=== PATIENT | male | born 1980 | race Caucasian/White ===

== ENCOUNTER 2016-12-17 12:19 | Observation (INO) | payer OTHER, SELFPAY ==
[2016-12-17 12:20] VITALS: BP 161/96; PULSE 98; RESP 16; TEMP 37.1; O2SAT 97; BMI 35.9
--- NOTE | 2016-12-17 12:44 | RAD_ITS ---
STUDY: X-RAY - RIGHT KNEE REASON FOR EXAM: Male, 36 years old. PIMPLE ANTERIOR KNEE X 2 DAYS. TODAY RED/SWELLING AND WARM. NO INJURY TECHNIQUE: 2 view(s) of the knee. COMPARISON: None. FINDINGS: Normal visualized distal femur. Normal visualized proximal tibia and fibula. Normal proximal tibiofibular articulation. Normal medial femorotibial compartment. Normal lateral femorotibial compartment. Normal patellofemoral articulation. There is diffuse soft tissue swelling, especially anteriorly. RAD/Knee 1 or 2 Views IMPRESSION: There is diffuse soft tissue swelling, especially anteriorly. Electronically Signed: Nadya Diaz MD at 14:28 EDT , Service support ,
--- NOTE | 2016-12-17 12:46 | ED.VISSUMM ---
- ER Visit Summary Date of Service: 12/17/16 Chief Complaint: [] Right knee cellulitis for a few days History of Present Illness: The patient is a 36 M [] ports of basically a few days ago he developed what he describes as a small blister over the infrapatellar region of the right knee he popped this lesion then he developed redness over the knee that his excuse extending, he was seen by his primary care physician started on Keflex which is taken for 24 hours the redness extended beyond the demarcation line he was instructed come to the hospital for admission. He has had no fever no direct trauma. He has no history of diabetes MRSA or infections Physical Examination: [] He is in no distress he has obvious cellulitis involving the anterior right knee head neck chest abdomen unremarkable the hip is unremarkable the right knee there is basically scaly skin over the infrapatellar region. He indicates is on his knees a lot for work, he has obvious edema to the skin there is no fluctuance no crepitus the patella is in good position and there is no obvious knee effusion he has surrounding redness about 10 cm circular, no lymphangitic streaking he has decreased range of motion to flexion extension, the distal tib-fib ankle and foot exams are unremarkable Test Results: [] Emergency Department Course and Treatment: [] In all of the above the fact that he is failed outpatient therapy on antibiotics for 24 hours routine screening labs blood cultures IV antibiotics x-ray Treatment Plan: [] Disposition: [] Impression: [] ED Disposition - Plan for ED Patient: Chief Complaint: Lower Extremity Injury Referrals: Too Townsend MD [Primary Care Provider] -
[2016-12-17] MEDS: Ondansetron 4 MG/2 ML Vial IV (13:02)
[2016-12-17] MEDS: 0.9% Normal Saline 1,000 ML 1000 ML IV (13:02)
[2016-12-17 13:09] LABS: Absolute Lymphocyte Count 1.33 X10^3/ul (0.83-4.51); Absolute Neutrophil Count 9.3 X10^3/uL (2.0-7.7); Basophil# 0.02 X10^3/uL; Basophil% 0.2 % (0-1); Eosinophil# 0.14 X10^3/uL; Eosinophils% 1.2 % (0-5); Hematocrit 47.4 % (40-54); Hemoglobin 16.7 g/dl (13.0-16.5); Lymphocyte # 1.33 X10^3/ul (4.0); Lymphocyte % 11.2 % (19-41); Mean Corp Hgb Conc 35.2 g/gl (32-36); Mean Corpuscular Hgb 30.4 pg (27.0-32.0); Mean Corpuscular Volume 86.2 fL (80-94); Mean Platelet Vol. 9.7 fl (6.2-12.0); Monocyte# 1.04 X10^3/uL; Monocyte% 8.8 % (0-10); Neutrophil # 9.32 X10^3/uL (2.7-7.7); Neutrophil % 78.4 % (47-70); Platelet Count 239 K/mm3 (150-450); RBC Distribution Width CV 12.4 % (11.6-14.6); RBC Distribution Width SD 39.4 fl (35.1-43.9); White Blood Count 11.9 K/mm3 (4.4-11.0)
[2016-12-17 13:22] LABS: Anion Gap 9 (5-15); BUN 15 mg/dL (7-18); BUN/Creat Ratio 11.3 RATIO (10-20); Calcium,Total 8.7 mg/dL (8.5-10.1); Chloride 101 mmol/L (98-107); Creatinine, Serum 1.33 mg/dL (0.70-1.30); EST Glomerular Filtration Rate 65 mL/min (>60); Est Glom Filt Rate - Afr Amer 78 mL/min (>60); Estimated Creatinine Clearance 69.29 ml/min; Glucose 83 mg/dL (70-110); Potassium 3.8 mmol/L (3.5-5.1); Sodium Level 138 mmol/L (136-145)
[2016-12-17 13:34] LABS: POSITIVE COUNT NO; POSITIVE DIFFERENTIAL NO; POSITIVE MORPHOLOGY NO
[2016-12-17] MEDS: 0.9% Normal Saline 1,000 ML 150 ML IV ×2 (13:47→22:15)
--- NOTE | 2016-12-17 14:19 | NURSING ---
MED SURG CELLULITIS KNEE SEMENTI
[2016-12-17 14:34] VITALS: BP 135/77; PULSE 82; PULSE 91; RESP 17; TEMP 37.4; O2SAT 95
[2016-12-17 15:21] VITALS: BMI 35.9; BMI 36.0
[2016-12-17 15:36] VITALS: BP 140/71; PULSE 88; RESP 18; TEMP 37.7; O2SAT 97
--- NOTE | 2016-12-17 16:01 | PCM.HP.STD ---
Problem List (1) Cellulitis Status: Acute (2) Obesity (BMI 35.0-39.9 without comorbidity) Status: Chronic (3) Depression Status: Chronic History of Present Illness Date of Admission: 12/17/16 Chief Complaint: pain and redness of the right knee The patient is a 36 year old M who presented to the ER c/o pain and redness of the right knee. He denies any fevers or chills. He had a pimple on his knee and he squeezed it last Sunday or Sunday. It started to get red about 2 days ago. He was seen by his PCP yesterday and started on Keflex. The border of the erythema was marked at his PCPs office. This morning the erythema extended beyond the border and he came to the emergency room. Past medical history is significant only for depression. Vital signs at presentation to the emergency room are temperature 98.8, pulse 98, blood pressure 161/96, respiratory rate 16 and he was 97% saturated on room air. Significant lab included an elevated white blood cell count at 11.6 with 78% neutrophils. Electrolytes were within normal limits and the BUN was 15 with a creatinine of 1.33. Blood sugar was within normal limits. X-ray of the right knee shows no fracture or dislocation. There is diffuse subcutaneous edema. Past Medical History Past Medical History (Chronic Problems): Chronic Problems Depression (Chronic) Obesity (BMI 35.0-39.9 without comorbidity) (Chronic) Allergies No Known Allergies Allergy (Verified 12/17/16 12:24) Home Medications: Ambulatory Orders Medication Instructions Recorded Cephalexin [Keflex] 500 mg PO 4X/DAY 12/17/16 Citalopram [Celexa] 40 mg PO DAILY 12/17/16 Surgical History: noncontributory Psychiatric History: Depression Lives: Spouse/ Significant Other Smoking Status: Never smoker Tobacco Use: Non-smoker Alcohol: Occasional - on the weekends Drugs: None - *Family History Maternal History Items: No pertinent history Paternal History Items: No pertinent history Review of Systems Constitutional: Denies: Chills, Fever, Weight Change Eyes: Denies: Blurred vision HEENT: Denies: Head Aches, Sinus Congestion, Sinus Drainage Cardiovascular: Denies: Chest Pain, Palpitations Respiratory: Denies: Cough, Shortness of breath at rest, Sputum production Gastrointestinal: Denies: Abdominal Pain, Nausea, Vomiting Genitourinary: Denies: Dysuria Musculoskeletal: Reports: Joint Pain - right knee, Joint Tenderness Skin: Denies: Rash, Wounds Neurological: Denies: Numbness, Tingling, Focal weakness Psychiatric: Reports: Depression. Denies: Homicidal Ideations, Suicidal Ideations Endocrine: Denies: Change in Body Habitus Hematologic/ Lymphatic: Denies: Hx of blood clot VTE Information - Inpt Only VTE Present on Admission: No VTE Mechan Device Prophylaxis: None VTE Pharm Prophylaxis ordered?: Yes Patient Problems: Active and Suspected Problems Cellulitis (Acute) - Physical Exam General: Alert, Oriented x3, Cooperative, Well developed - he is very muscular, Well nourished HEENT: Atraumatic, PERRLA, EOMI, Normocephalic Oral: Dry Mucosa Neck: Supple, No JVD, Negative Carotid Bruits Lungs: Clear to auscultation, Normal air movement Cardiovascular: Regular rate, Regular Rhythm, Normal S1, Normal S2, No murmurs, No Gallop Abdomen: Bowel Sounds Present, Soft, Non Tender, Non-Distended Extremities: No clubbing, No cyanosis, - - He has redness of the right knee with increased warmth. There is no open lesions and no purulent DC. There is swelling which is mostly in the soft tissue and not in the joint. He has restricted flexion....due to swelling. The pain is better with the knee extended. Skin: No rashes, No breakdown Neurological: Cranial nerves II-XII grossly intact, Neuro grossly intact Psych/Mental Status: Normal Affect, Appropriate Vital Signs Temp Pulse Resp BP Pulse Ox 99.8 F 88 18 140/71 97 12/17/16 15:36 12/17/16 15:36 12/17/16 15:36 12/17/16 15:36 12/17/16 15:36 Oxygen Delivery Method Room Air Weight: 223 lb Body Mass Index (BMI) 35.9 Assessment/Plan Active and Suspected Problems Cellulitis (Acute) Impressions 1. cellulitis of the Right knee - joint infection is not suspected at this time. 2. obesity 3. elevated Creat - may be related to heavy musculature 4. depression Admitted to [facility] 1 GM IV q 8H Motrin 800 mg TID for pain and to decrease inflammation Oxycodone PRN for pain not controlled with Motrin Elevate the RLE Lovenox for DVT prophylaxis recheck the lab in the AM Hydrate and recheck the creat
[2016-12-17 16:04] LABS: Erythrocyte Sedimentation Rate 7 mm/hr (0-15)
[2016-12-17] MEDS: oxyCODONE 5 MG Tablet PO ×2 (16:08→20:16)
[2016-12-17 16:10] LABS: Hemoglobin A1c 5.8 % (4.2-6.3)
[2016-12-17] MEDS: Enoxaparin 40 MG/0.4 ML Syringe SC (16:11)
--- NOTE | 2016-12-17 16:14 | NURSING ---
PT REFUSED ENSURE
[2016-12-17 16:23] VITALS: O2SAT 95
[2016-12-17] MEDS: HYDROmorphone 0.5 MG/0.5 ML Syringe IV (19:10)
[2016-12-17 20:11] VITALS: BP 133/73; PULSE 88; RESP 16; TEMP 37.7; O2SAT 96
[2016-12-17] MEDS: Cefazolin 1 GM/50 ML BAG IV (20:12)
[2016-12-17 20:18] VITALS: PULSE 88; RESP 16; O2SAT 96
[2016-12-17] MEDS: Ibuprofen 400 MG Tablet 800 MG PO (21:14)
[2016-12-17] MEDS: Acetaminophen 325 MG Tablet 650 MG PO (22:18)
[2016-12-18] MEDS: oxyCODONE 5 MG Tablet PO ×4 (00:19→21:05)
[2016-12-18] MEDS: guaiFENesin 10 ML UDC (200MG/10ML) PO (00:43)
[2016-12-18 02:21] VITALS: BP 122/69; PULSE 66; RESP 16; TEMP 36.6; O2SAT 95
[2016-12-18 02:25] VITALS: PULSE 66
[2016-12-18] MEDS: Ibuprofen 400 MG Tablet 800 MG PO ×3 (05:37→21:05)
[2016-12-18] MEDS: Cefazolin 1 GM/50 ML BAG IV ×3 (05:37→21:05)
[2016-12-18] MEDS: Enoxaparin 40 MG/0.4 ML Syringe SC (05:38)
[2016-12-18] MEDS: 0.9% Normal Saline 1,000 ML 150 ML IV (05:40)
[2016-12-18 07:57] VITALS: BP 144/93; PULSE 69; RESP 18; TEMP 36.4; O2SAT 97
[2016-12-18] MEDS: Citalopram 40 MG TABLET PO (09:25)
--- NOTE | 2016-12-18 11:41 | PCM.PROGNOTE ---
Patient Problems: Active and Suspected Problems Cellulitis (Acute) Subjective: Afebrile. The pain in the right knee is less today. The erythema is fading. No purulent DC - Physical Exam General: Alert, Oriented x3, Cooperative, No apparent distress Skin: - - less erythema of the R knee today....less intense. there is less swelling in the knee but more swelling in the right thigh due to the way the RLE is elevated. No thigh pain. there is no joint effusion appreciated. There is hyperkeratosis of both knees over the patella with cracking of the skin on the right. Vital Signs Temp Pulse Resp BP Pulse Ox 97.5 F 69 18 144/93 97 12/18/16 07:57 12/18/16 07:57 12/18/16 07:57 12/18/16 07:57 12/18/16 07:57 Oxygen Delivery Method Room Air Weight: 222 lb 10.67 oz Body Mass Index (BMI) 35.9 Intake and Output for Last 24 Hours 12/16/16 12/17/16 12/18/16 23:59 23:59 23:59 Intake Total 1163 2593 Balance 1163 2593 Assessment/Plan Active and Suspected Problems Cellulitis (Acute) Impressions 1. cellulitis of the Right knee - joint infection is not suspected at this time. 2. obesity 3. elevated Creat - may be related to heavy musculature 4. depression Continue Ancef Await results of blood cultures If continued improvement will discharge on 12/19 on Keflex or Duricef. Moisturizer to the knees over the patella BL
--- NOTE | 2016-12-18 11:47 | CASEMGMT ---
See RN CM Assessment. DC Plan: Home on dc. Stormy DURBIN BSN ACM
[2016-12-18] MEDS: 0.9% NaCl Peripheral Flush Adult/Peds IV ×2 (13:55→21:06)
[2016-12-18 14:01] VITALS: BP 133/65; PULSE 80; RESP 18; TEMP 36.8; O2SAT 96
[2016-12-18] MEDS: Mag Hydrox/Al Hydrox/Simeth 30 ML UDC PO (16:46)
[2016-12-18 19:38] VITALS: BP 146/79; PULSE 76; RESP 16; TEMP 36.4; O2SAT 97
[2016-12-19 01:45] VITALS: BP 115/68; PULSE 72; RESP 16; TEMP 36.7; O2SAT 95
[2016-12-19] MEDS: Cefazolin 1 GM/50 ML BAG IV ×2 (05:08→13:47)
[2016-12-19] MEDS: Enoxaparin 40 MG/0.4 ML Syringe SC (05:08)
[2016-12-19] MEDS: Ibuprofen 400 MG Tablet 800 MG PO ×2 (05:08→13:47)
[2016-12-19 06:12] LABS: Absolute Lymphocyte Count 1.49 X10^3/ul (0.83-4.51); Absolute Neutrophil Count 5.5 X10^3/uL (2.0-7.7); Basophil# 0.02 X10^3/uL; Basophil% 0.3 % (0-1); Eosinophil# 0.16 X10^3/uL; Lymphocyte # 1.49 X10^3/ul (4.0); Lymphocyte % 18.7 % (19-41); Mean Corp Hgb Conc 34.1 g/gl (32-36); Mean Corpuscular Hgb 30.2 pg (27.0-32.0); Mean Corpuscular Volume 88.7 fL (80-94); Mean Platelet Vol. 9.9 fl (6.2-12.0); Monocyte# 0.75 X10^3/uL; Monocyte% 9.4 % (0-10); Neutrophil # 5.52 X10^3/uL (2.7-7.7); Neutrophil % 69.5 % (47-70); Platelet Count 238 K/mm3 (150-450); RBC Distribution Width CV 12.5 % (11.6-14.6); RBC Distribution Width SD 40.1 fl (35.1-43.9); Red Blood Count 4.96 M/mm3 (4.6-6.2)
[2016-12-19 06:16] LABS: POSITIVE COUNT NO; POSITIVE DIFFERENTIAL NO; POSITIVE MORPHOLOGY NO
[2016-12-19 06:44] LABS: Anion Gap 7 (5-15); BUN 10 mg/dL (7-18); BUN/Creat Ratio 9.6 RATIO (10-20); Calcium,Total 8.1 mg/dL (8.5-10.1); Chloride 103 mmol/L (98-107); Creatinine, Serum 1.04 mg/dL (0.70-1.30); EST Glomerular Filtration Rate 86 mL/min (>60); Est Glom Filt Rate - Afr Amer 104 mL/min (>60); Estimated Creatinine Clearance 88.61 ml/min; Glucose 97 mg/dL (70-110); Potassium 4.1 mmol/L (3.5-5.1); Sodium Level 141 mmol/L (136-145)
[2016-12-19] MEDS: oxyCODONE 5 MG Tablet PO ×2 (08:37→13:51)
[2016-12-19] MEDS: Citalopram 40 MG TABLET PO (08:38)
[2016-12-19 09:00] VITALS: BP 133/74; PULSE 94; RESP 16; TEMP 36.1; O2SAT 97
--- NOTE | 2016-12-19 10:37 | VDLE_ITS ---
Reason For Study: pain and swelling RIGHT GSV is normal. CFV is compressible, spontaneous, phasic, competent and demonstrates normal augmentation. FV is compressible, spontaneous, phasic, competent and demonstrates normal augmentation. POP V is compressible, spontaneous, phasic, competent and demonstrates normal augmentation. T/P Trunk is compressible. PTV is compressible. RT PerV is compressible. Procedure Exam performed portable in patient room. The exam was diagnostic. A preliminary report was called and/or faxed to Thomas DURBIN. Interpretation Summary Deep veins of the right lower extremity are patent and compressible segmentally. There is no evidence of right lower extremity deep vein thrombosis. Valvular competence appears intact within the proximal deep venous system on the right . The right greater saphenous vein appears patent and compressible segmentally. Ordering Physician: Sofia Gustafson Performed By: Efrem Vasquez RVT
--- NOTE | 2016-12-19 13:28 | PCM.DC ---
- Discharge Diagnoses Current Active Problems: Current Active and Chronic Problems Cellulitis (Acute) Depression (Chronic) Obesity (BMI 35.0-39.9 without comorbidity) (Chronic) You will use the following diet at home:: No restrictions Your food should be the consistency of: Regular Your liquids should be the consistency of: Regular/Thin Discharge Activity: May not drive while taking narcotic pain medications. Return to work on:: 12/25/16 Weight Bearing Status: Weight bearing as tolerated Keep extremity elevated above heart level: Right Leg Call your doctor if you observe: Fever of 101 or Higher, Calf discomfort, Uncontrolled pain, - - rash, diarrhea Instructions: Cellulitis - Causes,Symptoms,Treating Additional Instructions: The ultrasound of the right leg shows no blood clots. The swelling is due to the infection and it will gradually improve. Keep it elevated any time you are sitting. Pending Tests on Discharge: none Allergies/Adverse Reactions: Allergies No Known Allergies Allergy (Verified 12/17/16 12:24) Medications to take at Discharge Citalopram [Celexa] 40 mg PO DAILY 12/17/16 Cefadroxil 1 gm PO BID #16 tablet 12/19/16 Ibuprofen [Motrin] 800 mg PO Q8 PRN #30 tablet 12/19/16 Oxycodone HCl/Acetaminophen [Percocet 5/325] 1 - 2 tablet PO Q4H PRN PRN #20 tablet 12/19/16 The following prescriptions were given: Oxycodone HCl/Acetaminophen [Percocet 5/325] 1 - 2 tablet PO Q4H PRN PRN #20 tablet PRN Reason: Pain Ibuprofen [Motrin] 800 mg PO Q8 PRN #30 tablet PRN Reason: Pain Cefadroxil 1 gm PO BID #16 tablet Primary Care Physician: Too Townsend MD [Primary Care Provider] - Please follow up with your Primary Care Physician in: this Sunday Proposed Discharge Date: 12/19/16
--- NOTE | 2016-12-19 13:36 | DS.PCM_ITS ---
Discharge Date and Diagnosis Date of Admission: 12/17/16 Date of Discharge: 12/19/16 - Primary Discharge Diagnosis Active and Suspected Problems Cellulitis (Acute) - RLE/Knee - Secondary Discharge Diagnosis Chronic Problems Depression (Chronic) Obesity (BMI 35.0-39.9 without comorbidity) (Chronic) Hospital Course and Treatment Imaging Results: Clinical Impression(s) from Imaging Studies Knee X-Ray 12/17/16 12:44 IMPRESSION: There is diffuse soft tissue swelling, especially anteriorly. Electronically Signed: Nadya Diaz MD at 14:28 EDT , Service support , Laboratory Last Values WBC 8.0 K/mm3 (4.4-11.0) 12/19/16 05:25 RBC 4.96 M/mm3 (4.6-6.2) 12/19/16 05:25 Hgb 15.0 g/dl (13.0-16.5) 12/19/16 05:25 Hct 44.0 % (40-54) 12/19/16 05:25 MCV 88.7 fL (80-94) 12/19/16 05:25 MCH 30.2 pg (27.0-32.0) 12/19/16 05:25 MCHC 34.1 g/gl (32-36) 12/19/16 05:25 RDW 12.5 % (11.6-14.6) 12/19/16 05:25 RDW Differential 40.1 fl (35.1-43.9) 12/19/16 05:25 Plt Count 238 K/mm3 (150-450) 12/19/16 05:25 MPV 9.9 fl (6.2-12.0) 12/19/16 05:25 Immature Gran % (Auto) 0.100 % (0.0-0.9) 12/19/16 05:25 Neut % (Auto) 69.5 % (47-70) 12/19/16 05:25 Lymph % (Auto) 18.7 % (19-41) L 12/19/16 05:25 [place] % (Auto) 9.4 % (0-10) 12/19/16 05:25 Eos % (Auto) 2.0 % (0-5) 12/19/16 05:25 Baso % (Auto) 0.3 % (0-1) 12/19/16 05:25 Absolute Neuts (auto) 5.5 X10^3/uL (2.0-7.7) 12/19/16 05:25 Absolute Lymphs (auto) 1.49 X10^3/ul (0.83-4.51) 12/19/16 05:25 Total Counted Not Reportable 12/19/16 05:25 ESR 7 mm/hr (0-15) 12/17/16 12:54 Sodium 141 mmol/L (136-145) 12/19/16 05:25 Potassium 4.1 mmol/L (3.5-5.1) 12/19/16 05:25 Chloride 103 mmol/L (98-107) 12/19/16 05:25 Carbon Dioxide 31.0 mmol/L (21.0-32.0) 12/19/16 05:25 Anion Gap 7 (5-15) 12/19/16 05:25 BUN 10 mg/dL (7-18) 12/19/16 05:25 Creatinine 1.04 mg/dL (0.70-1.30) 12/19/16 05:25 Estim Creat Clear Calc 88.61 ml/min 12/19/16 05:25 Est GFR (MDRD) Af Amer 104 mL/min (>60) 12/19/16 05:25 Est GFR (MDRD) Non-Af 86 mL/min (>60) 12/19/16 05:25 BUN/Creatinine Ratio 9.6 RATIO (10-20) L 12/19/16 05:25 Glucose 97 mg/dL (70-110) 12/19/16 05:25 Hemoglobin A1c 5.8 % (4.2-6.3) 12/17/16 12:54 Calcium 8.1 mg/dL (8.5-10.1) L 12/19/16 05:25 none Operations: None Procedures: - - US of the RLE - negative for DVT Summary of Care Provided: The patient is a 36 year old M with a past medical history of depression and obesity who presented to the [facility] emergency room complaining of pain, swelling and redness around his right knee. He had been seen by Dr. Townsend in the office the preceding day and been placed on Keflex however, he stated the redness was spreading beyond the border marked in Dr. Townsend's office. He was afebrile in the emergency room. White blood cell count was elevated at 11.6 with 78% neutrophils. Creatinine was increased at 1.33. An x-ray of the right knee showed no fracture or dislocation. There was diffuse subcutaneous edema around the right knee in the soft tissues. On PE there was no significant joint effusion and the swelling was in the bursae and in the soft tissue. There was erythema around the knee and there was increased warmth to touch. There were no openings in the skin and no purulent discharge. There were no localized areas of fluctuance. He was admitted to the hospital and placed on intravenous Ancef. The right lower extremity was elevated. Blood cultures were negative. White blood cell count on the date of discharge was 8.0 with a normal differential. Sed rate at admission was 7. Creatinine decreased to 1.04 discharge. On the date of discharge he had edema extending from the upper thigh to the ankle. Venous ultrasound of the right lower extremity was obtained and was negative for DVT. I suspect the edema in the thigh is due to the positioning of the leg to elevate the RLE above the level of the heart. He was discharged home with a prescription for Duricef 1 g p.o. twice daily for 8 days. He is going to follow-up with Dr. Townsend later this week for a recheck. He was given a prescription for Percocet and Motrin for pain control. He was instructed to elevate his knee when he is sitting. He was given a work release to return to work on 12/25. Discharge Activity: May not drive while taking narcotic pain medications. Return to work on:: 12/25/16 Weight Bearing Status: Weight bearing as tolerated Keep extremity elevated above heart level: Right Leg Call your doctor if you observe: Fever of 101 or Higher, Calf discomfort, Uncontrolled pain, - - rash, diarrhea Home Medications: Medications to take at Discharge Citalopram [Celexa] 40 mg PO DAILY 12/17/16 Cefadroxil 1 gm PO BID #16 tablet 12/19/16 Ibuprofen [Motrin] 800 mg PO Q8 PRN #30 tablet 12/19/16 Oxycodone HCl/Acetaminophen [Percocet 5/325] 1 - 2 tablet PO Q4H PRN PRN #20 tablet 12/19/16 Following Prescrptions Were Given to Patient: Oxycodone HCl/Acetaminophen [Percocet 5/325] 1 - 2 tablet PO Q4H PRN PRN #20 tablet PRN Reason: Pain Ibuprofen [Motrin] 800 mg PO Q8 PRN #30 tablet PRN Reason: Pain Cefadroxil 1 gm PO BID #16 tablet Primary Care Physician: Too Townsend MD [Primary Care Provider] - Please follow up with your Primary Care Physician in: this Sunday Patient Instructions: Cellulitis - Causes,Symptoms,Treating Disposition: Home Minutes spent on discharge:: 35 Patient Condition:: Good Meaningful Use Info Meaningful Use Diagnoses (Choose all that apply): None applicable
[2016-12-19] MEDS: 0.9% NaCl Peripheral Flush Adult/Peds IV (13:48)
[2016-12-19 13:55] VITALS: BP 158/85; PULSE 85; RESP 18; TEMP 36.2; O2SAT 96
== END 2016-12-19 14:31 | disposition home or self-care (01) | DRG 603 ==
LOC: ED 08-02 12:18 → MS3 08-02 12:18
PROVIDERS: Admitting Provider Internal Medicine; Emergency Provider Emergency Medicine; Family Provider Family Medicine; PCP Family Medicine; Visit Provider Internal Medicine
DX: L03.115 Cellulitis of right lower limb (principal); F32.9 Major depressive disorder, single episode, unspecified; E66.9 Obesity, unspecified; Z68.35 Body mass index [BMI] 35.0-35.9, adult; Z79.899 Other long term (current) drug therapy
CPT/HCPCS: 36415; 73560; 80048; 83036; 85025; 85652; 87040; 93971; 97802; 99218; 99283; J7030; A4216; G0378; J2405

== ENCOUNTER → 2017-09-08 11:08 | Outpatient (CLI) | payer OTHER, SELFPAY ==
[2017-09-08 12:07] LABS: Anion Gap 5 (5-15); BUN 14 mg/dL (7-18); BUN/Creat Ratio 12.5 RATIO (10-20); Calcium,Total 8.3 mg/dL (8.5-10.1); Chloride 101 mmol/L (98-107); Cholesterol 221 mg/dL (200); Creatinine, Serum 1.12 mg/dL (0.70-1.30); EST Glomerular Filtration Rate 78 mL/min (>60); Est Glom Filt Rate - Afr Amer 95 mL/min (>60); Glucose 99 mg/dL (74-106); High Density Lipoprotein 34 mg/dL; Potassium 3.7 mmol/L (3.5-5.1); Sodium Level 136 mmol/L (136-145); Triglycerides 193 mg/dL; Very Low Density Lipoprotein 39 mg/dL (5-40)
== END ==
PROVIDERS: Family Provider Family Medicine; PCP Family Medicine; Visit Provider Family Medicine
DX: I10 Essential (primary) hypertension (principal)
CPT/HCPCS: 36415; 80048; 80061

== ENCOUNTER → 2017-11-29 17:05 | Outpatient (CLI) | payer OTHER, SELFPAY ==
--- NOTE | 2017-11-29 17:07 | RAD_ITS ---
STUDY: X-RAY - LEFT WRIST REASON FOR EXAM: Male, 37 years old. Nontraumatic left wrist pain TECHNIQUE: 3 view(s) of the wrist were obtained. COMPARISON: None. FINDINGS: Normal visualized distal radius and ulna. Normal radiocarpal articulation. Normal distal radioulnar articulation. Normal carpal bones. Normal carpal articulations. Normal carpometacarpal articulation of the thumb. Normal second through fifth carpometacarpal articulations. Normal visualized metacarpal bones. The soft tissue structures are unremarkable. RAD/Wrist min 3 Views IMPRESSION: Normal x-ray examination of the wrist. Electronically Signed: Rodger Yancey MD at 4:59 EDT Tel , Service support ,
== END ==
PROVIDERS: Family Provider Family Medicine; PCP Family Medicine; Referring Provider Family Medicine; Visit Provider Family Medicine
DX: M25.532 Pain in left wrist (principal)
CPT/HCPCS: 73110

== ENCOUNTER → 2018-02-16 09:18 | Outpatient (CLI) | payer OTHER, SELFPAY ==
[2016-12-22 02:10] VITALS: BMI 36.3
[2018-02-16 10:51] LABS: Anion Gap 7 (5-15); BUN 19 mg/dL (7-18); BUN/Creat Ratio 18.3 RATIO (10-20); Calcium,Total 8.4 mg/dL (8.5-10.1); Chloride 104 mmol/L (98-107); Cholesterol 248 mg/dL (200); Creatinine, Serum 1.04 mg/dL (0.70-1.30); EST Glomerular Filtration Rate 85 mL/min (>60); Est Glom Filt Rate - Afr Amer 103 mL/min (>60); Glucose 100 mg/dL (74-106); High Density Lipoprotein 35 mg/dL; Sodium Level 139 mmol/L (136-145); Triglycerides 163 mg/dL; Very Low Density Lipoprotein 33 mg/dL (5-40)
== END ==
PROVIDERS: Family Provider Family Medicine; PCP Family Medicine; Referring Provider Family Medicine; Visit Provider Family Medicine
DX: I10 Essential (primary) hypertension (principal)
CPT/HCPCS: 36415; 80048; 80061

== ENCOUNTER → 2018-06-06 | Outpatient (CLI) | payer OTHER, SELFPAY ==
[2016-12-22 02:10] VITALS: BMI 36.3
--- NOTE | 2018-06-06 16:42 | RAD_ITS ---
STUDY: X-RAY - RIGHT HAND REASON FOR EXAM: Swelling, splinter at the anterior base of thumb. TECHNIQUE: 3 view(s) of the hand. COMPARISON: None. FINDINGS: Normal radiocarpal articulation. Normal distal radioulnar joint. Normal visualized carpal bones. Normal carpal articulations Normal carpometacarpal articulation of the thumb. Normal second through fifth carpometacarpal joints. Normal metacarpi. Normal metacarpophalangeal joint of the thumb. Normal interphalangeal joint of the thumb. Normal proximal and distal phalanges of the thumb. Normal metacarpophalangeal joints of the second through fifth fingers. Normal proximal and distal interphalangeal joints of the second through fifth fingers. Normal phalanges of the second through fifth fingers. The soft tissue structures are unremarkable. RAD/Hand Min 3 Views IMPRESSION: Normal x-ray examination of the hand without demonstrated radiopaque foreign body. Electronically Signed: Marvin Nuñez MD at 14:21 EDT Tel , Service support ,
== END | disposition home or self-care (01) ==
LOC: MTRAD 16:39
PROVIDERS: Family Provider Family Medicine; PCP Family Medicine; Referring Provider Nurse Practitioner Family; Visit Provider Nurse Practitioner Family
DX: S60.551A Superficial foreign body of right hand, initial encounter (principal)
CPT/HCPCS: 73130

== ENCOUNTER 2018-06-08 11:17 | Inpatient (IN) | payer OTHER, SELFPAY ==
[2018-06-08 11:18] VITALS: BP 118/59; PULSE 90; RESP 17; TEMP 37.1; O2SAT 96; BMI 34.0
--- NOTE | 2018-06-08 12:26 | CT_ITS ---
CT right hand INDICATION:PIECE OF WOOD INTO HAND BETWEEN THUMB AND FIRST DIGIT ON SUNDAY, HAND NOW RED, SWOLLEN AND WARM TO TOUCH TECHNIQUE: Axial CT imaging was performed through the hand with sagittal and coronal reformatted images obtained. No IV contrast. FINDINGS: The distal radius and ulna are unremarkable. The proximal and distal carpal rows are normal. The metacarpals are normal without evidence of periosteal reaction or jo erosion. Normal first through fifth digit phalanges. There is a linear foreign body in the soft tissues between the first and second digits measuring approximately 1.9 cm in length and 1.3 mm wide and approximately 6 mm deep to the skin surface (image 54). There is soft tissue stranding along this foreign body with small locules of air (axial image 51). Skin thickening and small locules with adjacent increased density on axial image 56 likely represents entry site. CT/Extremity Upper without Contra IMPRESSION: 1. Linear foreign body between the first and second digits with adjacent inflammation suggesting cellulitis. No focal fluid collection. Small amount of air may be related to penetrating injury. Electronically Signed: Umer Ng MD at 14:08 EDT , Service support ,
[2018-06-08 13:04] LABS: Absolute Lymphocyte Count 1.03 X10^3/ul (0.83-4.51); Absolute Neutrophil Count 9.1 X10^3/uL (2.0-7.7); Basophil# 0.02 X10^3/uL; Basophil% 0.2 % (0-1); Eosinophil# 0.09 X10^3/uL; Eosinophils% 0.8 % (0-5); Hematocrit 45.9 % (40-54); Hemoglobin 16.6 g/dl (13.0-16.5); Lymphocyte # 1.03 X10^3/ul (4.0); Lymphocyte % 9.4 % (19-41); Mean Corp Hgb Conc 36.2 g/gl (32-36); Mean Corpuscular Hgb 30.7 pg (27.0-32.0); Mean Platelet Vol. 9.9 fl (6.2-12.0); Monocyte# 0.71 X10^3/uL; Monocyte% 6.5 % (0-10); Neutrophil # 9.06 X10^3/uL (2.7-7.7); Neutrophil % 82.8 % (47-70); Platelet Count 236 K/mm3 (150-450); RBC Distribution Width CV 12.5 % (11.6-14.6); RBC Distribution Width SD 38.7 fl (35.1-43.9); White Blood Count 10.9 K/mm3 (4.4-11.0)
[2018-06-08 13:09] LABS: POSITIVE COUNT NO; POSITIVE DIFFERENTIAL NO; POSITIVE MORPHOLOGY NO
[2018-06-08 13:17] LABS: Anion Gap 7 (5-15); BUN 16 mg/dL (7-18); BUN/Creat Ratio 12.4 RATIO (10-20); CRP 5.83 mg/L (0.0-3.0); Calcium,Total 8.6 mg/dL (8.5-10.1); Chloride 102 mmol/L (98-107); Creatinine, Serum 1.29 mg/dL (0.70-1.30); EST Glomerular Filtration Rate 66 mL/min (>60); Est Glom Filt Rate - Afr Amer 80 mL/min (>60); Glucose 118 mg/dL (74-106); Sodium Level 137 mmol/L (136-145)
--- NOTE | 2018-06-08 13:24 | ED.VISSUMM ---
- ER Visit Summary Date of Service: 06/08/18 Chief Complaint: [Foreign body right hand] History of Present Illness: The patient is a 37 M [presents the emergency department complaint of a foreign body in his right hand. Patient states that he picked up a 2 x 4 piece of wood 3 days ago and a large splinter entered the webspace between his thumb and right index finger. Patient states that he was seen by nurse practitioner at his primary care physician's office where he had an x-ray and he was started on Bactrim and was told to come back in several days to see if they can have the splinter removed. Patient had area of erythema outlined with marker and now has increased redness and swelling to the right hand. He denies any fevers. Patient was seen by physician today who attempted to remove the foreign body unsuccessfully and was referred to the emergency department. Patient is right-hand dominant. Patient is up-to-date on tetanus.] Physical Examination: [HEENT-PERRLA, EOMI. Cranial nerves II through XII grossly intact. TMs clear. Mucous membranes moist. No adenopathy. Cardiovascular-regular rate and rhythm without murmur or ectopy Lungs-clear to auscultation, chest wall stable without crepitus or subcu emphysema Abdomen-normoactive bowel sounds, soft, nontender, no rebound or rigidity, no peritoneal signs. Extremities-intact ?4, normal range of motion, normal pulses. Right hand-patient has diffuse soft tissue swelling over the dorsal and palmar aspect of the right hand on the radial side. Patient has cellulitic changes noted. Has normal range of motion in all digits with flexion extension. He is neurovascular intact.] Test Results: CBC with differential obtained showed a white count 10.9, hemoglobin 16, hematocrit 46, placed 236. Chemistries unremarkable. C-reactive protein was 5.83. Patient was started on Unasyn 3 g IV. Case was discussed with] Emergency Department Course and Treatment: [Case was discussed with orthopedic surgeon on-call Dr. Cagle who will admit patient for IV antibiotics and possible exploration and OR tomorrow. CT scan of the hand was ordered by the surgeon and results which are currently pending]. I was asked to open up the wound further and attempt to see if there is an obvious foreign body that I am easily able to remove and also packed the wound and culture of the wound. I&D-area of the hand was sterilely draped and prepped. Wound was cleansed with Shur-Clens. Wound was anesthetized with 1% lidocaine total 3 cc. Using an 11 blade a 1.5 cm incision was made to extend the puncture wound in both directions. I attempted to probe the wound with forceps and curved hemostats and I do not palpate an obvious foreign body. Wound cultures were obtained. And small amount of packing was placed within the wound and a clean dressing applied. Treatment Plan: [Admit admit Disposition: [Admit] Impression: [Right hand foreign body with cellulitis] This note was generated with [employer] dictation software. It may contain incorrect words, spelling, and punctuation that were not noted in review of the chart prior to signing ED Disposition - Plan for ED Patient: Referrals: Too Townsend MD [Primary Care Provider] -
--- NOTE | 2018-06-08 13:30 | CT_ITS ---
CT right hand INDICATION:PIECE OF WOOD INTO HAND BETWEEN THUMB AND FIRST DIGIT ON SUNDAY, HAND NOW RED, SWOLLEN AND WARM TO TOUCH TECHNIQUE: Axial CT imaging was performed through the hand with sagittal and coronal reformatted images obtained. No IV contrast. FINDINGS: The distal radius and ulna are unremarkable. The proximal and distal carpal rows are normal. The metacarpals are normal without evidence of periosteal reaction or jo erosion. Normal first through fifth digit phalanges. There is a linear foreign body in the soft tissues between the first and second digits measuring approximately 1.9 cm in length and 1.3 mm wide and approximately 6 mm deep to the skin surface (image 54). There is soft tissue stranding along this foreign body with small locules of air (axial image 51). Skin thickening and small locules with adjacent increased density on axial image 56 likely represents entry site. CT/Coronals Sag Multi Obl 3-D Rec IMPRESSION: 1. Linear foreign body between the first and second digits with adjacent inflammation suggesting cellulitis. No focal fluid collection. Small amount of air may be related to penetrating injury. Electronically Signed: Umer Ng MD at 14:08 EDT , Service support ,
[2018-06-08 14:06] LABS: Erythrocyte Sedimentation Rate 4 mm/hr (0-15)
[2018-06-08 14:14] VITALS: BMI 33.9
[2018-06-08 14:34] VITALS: BMI 33.8
--- NOTE | 2018-06-08 16:45 | NURSING ---
06/06/18 went to [facility] - saw INDUSTRIAL REGISTERED NURSE Betito Kamara
[2018-06-08] MEDS: Acetaminophen 325 MG Tablet 650 MG PO (20:20)
[2018-06-08 20:21] VITALS: BP 130/65; PULSE 66; RESP 18; TEMP 37.2; O2SAT 96
[2018-06-09] VITALS (10 sets, daily range): BP systolic 114–160; BP diastolic 7–77; PULSE 60–90; RESP 16–18; TEMP 36.4–37.1; O2SAT 88–97; BMI 33.8
[2018-06-09] MEDS: 0.9% Normal Saline 1,000 ML 80 ML IV ×3 (02:05→12:32)
--- NOTE | 2018-06-09 05:00 | EKG12_ITS ---
Test Reason : AM EKG Blood Pressure : / mmHG Vent. Rate : 059 BPM Atrial Rate : 059 BPM P-R Int : 140 ms QRS Dur : 098 ms QT Int : 432 ms P-R-T Axes : 032 049 051 degrees QTc Int : 427 ms Sinus bradycardia Otherwise normal ECG No previous ECGs available Confirmed by ALETHEA MASTERSON, JULEE ([id number]), assignment editor QUIN CORONADO ([id number]) on 06/12/2018 2:00:08 PM Referred By: NURIS Confirmed By:JULEE CLAIRE MD
--- NOTE | 2018-06-09 11:00 | HP.PCM_ITS ---
Problem List (1) Cellulitis Status: Acute Qualifiers: Site of cellulitis: other site Qualified Code(s): L03.818 - Cellulitis of other sites (2) Foreign body hand-infection Status: Acute Qualifiers: Encounter type: initial encounter Laterality: right Qualified Code(s): S60.551A - Superficial foreign body of right hand, initial encounter; L08.9 - Local infection of the skin and subcutaneous tissue, unspecified History of Present Illness Date of Admission: 06/09/18 The patient is a 37 year old M 2 x 4 at home, moving board and splinter entered in hand 4 days ago. seen by pcp and started on antibiotics, attempted to remove splinter, but unable, bactrim; worsening and seen in ER with spreading of cellulitis,ortho called. Patient admitted with broad spectrum IV antibiotics, no fever, chills, or other constitutional symptoms. tetanus d/w patient. [] Past Medical History Past Medical History (Chronic Problems): Chronic Problems Depression (Chronic) Obesity (BMI 35.0-39.9 without comorbidity) (Chronic) Allergies No Known Allergies Allergy (Verified 06/08/18 11:18) Home Medications: Ambulatory Orders Medication Instructions Recorded Citalopram [Celexa] 40 mg PO DAILY 12/17/16 Ibuprofen [Motrin] 800 mg PO Q8 PRN #30 tablet 12/19/16 Hydrochlorothiazide [Hctz] 25 mg PO DAILY 06/08/18 Lisinopril 5 mg PO DAILY 06/08/18 Rosuvastatin Calcium [Crestor] 5 mg PO DAILY 06/08/18 Sulfamethoxazole/Trimethoprim 1 each PO BID 06/08/18 [Bactrim 400-80 mg Tablet] Oxycodone HCl/Acetaminophen 1 - 2 tablet PO Q6H PRN PRN 3 Days 06/09/18 [Percocet 5/325] #20 tablet Surgical History: noncontributory Psychiatric History: Depression Smoking Status: Never smoker - *Family History Maternal History Items: No pertinent history Paternal History Items: No pertinent history Review of Systems Constitutional: Denies: Chills, Fever, Weight Change HEENT: Denies: Head Aches, Sinus Congestion, Sinus Drainage Cardiovascular: Denies: Chest Pain, Palpitations Respiratory: Denies: Cough, Shortness of breath at rest, Sputum production Gastrointestinal: Denies: Abdominal Pain, Nausea, Vomiting Genitourinary: Denies: Dysuria Musculoskeletal: Reports: Hand Pain. Denies: Joint Pain, Joint Tenderness Skin: Denies: Rash, Wounds Neurological: Denies: Numbness, Tingling, Focal weakness Psychiatric: Denies: Anxiety, Depression, Homicidal Ideations, Suicidal Ideations Hematologic/ Lymphatic: Denies: Easy Bruising, Easy Bleeding VTE Information - Inpt Only VTE Present on Admission: No VTE Mechan Device Prophylaxis: SCD's Patient Problems: Active and Suspected Problems Foreign body hand-infection (Acute) - Physical Exam General: Alert, Oriented x3, Cooperative HEENT: Atraumatic, PERRLA, EOMI, Normocephalic Neck: Supple, No JVD, Negative Carotid Bruits Lungs: Clear to auscultation, Normal air movement Cardiovascular: Regular rate, No murmurs Abdomen: Bowel Sounds Present, Soft, Non Tender Extremities: No edema, Capillary Refill Less than 3 Seconds Skin: No rashes, No breakdown Musculoskeletal: Tenderness - First interspace, neurologically intact, able to abduct and adduct thumb without issue, swelling of thenar eminence and redness has significantly decreased Neurological: Cranial nerves II-XII grossly intact Psych/Mental Status: Normal Affect, Appropriate Vital Signs Temp Pulse Resp BP Pulse Ox 98.4 F 60 18 120/69 96 06/09/18 06:00 06/09/18 06:00 06/09/18 06:00 06/09/18 06:00 06/09/18 06:00 Oxygen Delivery Method Room Air Weight: 216 lb 4.375 oz Body Mass Index (BMI) 33.8 Intake and Output for Last 24 Hours 06/07/18 06/08/18 06/09/18 23:59 23:59 23:59 Intake Total 362 / 362 604 / 604 Balance 362 / 362 604 / 604 Microbiology Past 72 Hours 06/08/18 13:19 Gram Stain - Final Wound - Other Laboratory Tests Past 24 Hrs 06/08/18 06/08/18 12:55 12:55 WBC 10.9 RBC 5.40 Hgb 16.6 H Hct 45.9 MCV 85.0 MCH 30.7 MCHC 36.2 H RDW 12.5 RDW Differential 38.7 Plt Count 236 MPV 9.9 Immature Gran % (Auto) 0.300 Neut % (Auto) 82.8 H Lymph % (Auto) 9.4 L [place] % (Auto) 6.5 Eos % (Auto) 0.8 Baso % (Auto) 0.2 Absolute Neuts (auto) 9.1 H Absolute Lymphs (auto) 1.03 Total Counted Not Reportable ESR 4 Sodium 137 Potassium 4.0 Chloride 102 Carbon Dioxide 28.0 Anion Gap 7 BUN 16 Creatinine 1.29 Estim Creat Clear Calc 73.30 Est GFR (MDRD) Af Amer 80 Est GFR (MDRD) Non-Af 66 BUN/Creatinine Ratio 12.4 Glucose 118 H Calcium 8.6 C-React Prot Ext Range 5.83 H Assessment/Plan All Active Problems Foreign body hand-infection (Acute) Cellulitis (Acute) Patient has a foreign body visualized on CT to be just subcutaneous on physical exam he did have a slight cellulitis had been marked previously after IV antibiotics overnight has improved drastically however still has the splinter. ER did open and placed some packing to allow for some drainage as well. Risks benefits and alternatives surgery discussed with patient and . Risks i ncluding but not limited to blood loss, blood clot, infection, neurovascular, failure procedure the biggest risk for this is stiffness at the first interspace increased or continued pain and or swelling. We did consent was reviewed for I&D right interspace with removal of foreign body. iv Meropenem N.p.o. after midnight Call with increased pain numbness tingling or further issues arise ER discussed to take cultures and pending final cultures will determine when he goes home on Consult social work Consult wound care Call with concerns [phone]
--- NOTE | 2018-06-09 11:23 | DCINST_ITS ---
Discharge Diet: No Restrictions - follow up on for wound evaluation, keep incision clean and dry, call with increased redness, fever, chills or constitutional symptoms Discharge Activity: May Not Drive May shower in (days): 1 Ice area for (Minutes): 20 - Every hour while awake. Weight Bearing Status: Weight bearing as tolerated Keep extremity elevated above heart level: Operative Extremity Call your doctor if your incision/area has: Continuous Slow Oozing, Sudden Increased Bleeding, Increased Pain/ Swelling, Increased Redness, Foul Smelling Discharge Call your doctor if you observe: Fever of 101 or Higher, Coldness, Increased Pain, Numbness or Tingling, Change in Color, Calf discomfort Allergies/Adverse Reactions: Allergies No Known Allergies Allergy (Verified 06/08/18 11:18) Medications to take at Discharge Citalopram [Celexa] 40 mg PO DAILY 12/17/16 Ibuprofen [Motrin] 800 mg PO Q8 PRN #30 tablet 12/19/16 Hydrochlorothiazide [Hctz] 25 mg PO DAILY 06/08/18 Lisinopril 5 mg PO DAILY 06/08/18 Rosuvastatin Calcium [Crestor] 5 mg PO DAILY 06/08/18 Sulfamethoxazole/Trimethoprim [Bactrim 400-80 mg Tablet] 1 each PO BID 06/08/18 Primary Care Physician: Too Townsend MD [Primary Care Provider] - Test Results: Test results from this visit will be discussed in further detail at your follow- up appointment, if applicable. Please Follow Up With: Marina Cagle, - [phone]
--- NOTE | 2018-06-09 11:27 | PCM.OPRPT ---
Problem List (1) Cellulitis Status: Acute Qualifiers: Site of cellulitis: other site Qualified Code(s): L03.818 - Cellulitis of other sites (2) Foreign body hand-infection Status: Acute Qualifiers: Encounter type: initial encounter Laterality: right Qualified Code(s): S60.551A - Superficial foreign body of right hand, initial encounter; L08.9 - Local infection of the skin and subcutaneous tissue, unspecified Report of Operation Date of Procedure: 06/09/18 Pre-Operative Diagnosis: Right hand cellulitis foreign body first web interspace right hand Post-Operative Diagnosis: Same Surgery/Procedure Performed:: Right hand foreign body removal/splint, incision and drainage irrigation debridement first interspace Type of Anesthesia:: General Anesthesiologist: Dolores Escoto Specimen's removed: splinter/ not sent Estimated Blood Loss (mL): none Fluids Replaced: 800ml lr Description of Procedure: Preop note Patient is a 37-year-old male who has a retained foreign body in his first interspace see HPI for further details. Discussion with family to remove splinter discussed risk benefits of surgery risks including but not limited to blood loss, blood clot, infection, neurovascular injury, failure procedure, loss of life and loss of limb. Patient and family are aware would like proceed with right hand and right first interspace removal of foreign body irrigation debridement incision and drainage. Next Operative note Patient seen and examined preoperative holding area. Right hand was marked. Patient brought to the operating room placed supine on the operating table. Sign, anesthesia, antibiotics were held as patient received antibiotics in the form was not did for antibiotics. He did have cultures available and to be sent as well after incision. Timeout was performed. The right hand was then elevated tourniquet was raised her pressure to 50 torr. We then extended our incision is a little bit thenar as there is a smart is a puncture wound about half a centimeter in the first interspace from distal and central volar dorsal. We then used a marking pen to raissa out her extension of her incision extended about another centimeter dissected down tenotomy syllable of the splinter we are able to visualize the splinter we then remove the center in its entirety dissected down further into the muscle belly did not start that we had removed it in its entirety which we did have. We then irrigated the incision with copious amounts of sterile saline. Gently debrided off the soft tissue to ensure that there is no foreign bodies or any soft tissue debris. We then closed the skin with 4-0 nylon and placed packing in the incision dressings were applied. Tourniquet was deflated for total working time of 12 minutes. Patient tolerated procedure well there are no comp occasions transferred recovery room in stable condition. Next Postoperative Continue meropenem until final cultures next Awaiting antibiotics for home discharge however patient really like to go home on Sunday and we may send him on a broad-spectrum antibiotic coverage until final cultures and then change him once he is home family is aware and agreement of plan Consult wound care for dressing change tomorrow I will follow him at the end of the week May use hand as tolerated Call with concerns [phone] d/w and state patient in past has had mrsa skin lesion of knee resolved
--- NOTE | 2018-06-09 22:44 | NURSING ---
Pts O2 sat decreased to 88% on continuous pulse ox. Checked pt and he was just starting to fall asleep. Applied 2L oxygen via nc at this time.
--- NOTE | 2018-06-10 | FORE_PTH ---
PATIENT: ZACK CUTLER LOC: [facility] U#:[id number] AGE/SX: 37/M ROOM: [facility]323 RE06/08/[address]: Dr. Marina Cagle DO : 1980 BED: 1 DIS: 06/10/2018 SPEC #: [id number] RECD: 06/10/18 13:26 STATUS: NOHEMY NEY #: [id number] DISHA: 06/10/18 00:[address]: Marina Cagle DEPT: SURGICAL PATHOLOGY RECD BY: Rodger Malagon ENTERED: 06/10/18 13:26 SP TYPE: FOREIGN B DILAN DR: Dr. Too Townsend MD Tissues: FOREIGN BODY Procedures: Surgery Specimen Level I HEADER OPERATION: Removal of foreign body right hand PRE-OP DIAGNOSIS: Foreign body right hand TISSUE SUBMITTED: Splint right hand GROSS DIAGNOSIS Splint right hand: A piece of wood, consistent with splint (foreign body). GROSS DESCRIPTION Received in fixative is one container labeled with the patient's name and designated splint right hand. The specimen consists of a piece of brownish-black wood, splint, measuring 1.5 cm in length and 0.1 to 0.2 cm in diameter. The specimen is for gross identification only. / SJ:rg 06/10/18 CPT: 26336
[2018-06-10 02:37] VITALS: BP 115/55; PULSE 64; RESP 16; TEMP 36.3; O2SAT 98
[2018-06-10] MEDS: 0.9% Normal Saline 1,000 ML 80 ML IV (02:37)
[2018-06-10 07:37] VITALS: BP 122/67; PULSE 60; RESP 15; TEMP 36.5; O2SAT 97
[2018-06-10] MEDS: HYDROcodone Bitartrate/Apap 5/325 Tablet PO (09:08)
--- NOTE | 2018-06-10 09:11 | NURSING ---
wound photo: right hand
--- NOTE | 2018-06-10 11:45 | CASEMGMT ---
RN RACHEL Face to Face with patient for initial transition planning/care coordination assessment. RN CM introduced self and role at [facility]. Patient lying in bed, alert and oriented, at bedside. Patient willing to participate in assessment and is able to answer all questions appropriately. Care providers, pharmacy, and demographics verified. Patient wishes to discharge home, denies need for home health at this time. Patient states he has no further needs or concerns at this time. CM to follow for discharge planning needs that may arise. 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 Patient is independent at home. Transportation: self/ DME/HHC: Patient has Cpap at home. Disposition Plan: Patient to discharge home with family support and follow-up plans in place. Fatou TOTH, RN, CM
--- NOTE | 2018-06-10 12:25 | PCM.DC.ORTHO ---
Discharge Diet: No Restrictions Discharge Activity: May not drive while taking narcotic pain medications., May Take a Tub Bath - Keep wound clean and dry. No soaking May resume sexual activity in: No Restrictions Ice area for (Minutes): 20 - once an hour as needed for swelling / inflammation Weight Bearing Status: Weight bearing as tolerated Lifting Restrictions: No lfting over 5 pounds Keep extremity elevated above heart level: Operative Extremity, Right Arm Call your doctor if your incision/area has: Continuous Slow Oozing, Sudden Increased Bleeding, Increased Pain/ Swelling, Increased Redness, Foul Smelling Discharge Call your doctor if you observe: Fever of 101 or Higher, Coldness, Increased Pain, Numbness or Tingling, Change in Color, Shortness of breath, Calf discomfort Suture Line Care: Avoid Pulling/Pushing, Avoid Pinching/Bending Change Dressing in (Days):: 2 - days Cleanse incision/area with: Do not get Incision Wet, Keep Dressing Clean & Dry Additional Instructions: Patient is to continue oral bactrim until final culture report with sensitivity is back. We will notify him of results and any change to medication based on culture sensitivities. Allergies/Adverse Reactions: Allergies No Known Allergies Allergy (Verified 06/08/18 11:18) Medications to take at Discharge Citalopram [Celexa] 40 mg PO DAILY 12/17/16 Ibuprofen [Motrin] 800 mg PO Q8 PRN #30 tablet 12/19/16 Hydrochlorothiazide [Hctz] 25 mg PO DAILY 06/08/18 Lisinopril 5 mg PO DAILY 06/08/18 Rosuvastatin Calcium [Crestor] 5 mg PO DAILY 06/08/18 Sulfamethoxazole/Trimethoprim [Bactrim 400-80 mg Tablet] 1 each PO BID 06/08/18 Oxycodone HCl/Acetaminophen [Percocet 5/325] 1 - 2 tablet PO Q6H PRN PRN 3 Days #20 tablet 06/09/18 The following prescriptions were given: Oxycodone HCl/Acetaminophen [Percocet 5/325] 1 - 2 tablet PO Q6H PRN PRN 3 Days #20 tablet PRN Reason: Pain Primary Care Physician: Too Townsend MD [Primary Care Provider] - Test Results: Test results from this visit will be discussed in further detail at your follow-up appointment, if applicable. Please Follow Up With: Marina Cagle DO - [phone] When: or Sunday Proposed Discharge Date: 06/10/18
--- NOTE | 2018-06-10 12:29 | DCINST_ITS ---
Discharge Diet: No Restrictions Discharge Activity: May not drive while taking narcotic pain medications., May Take a Tub Bath - Keep wound clean and dry. No soaking May resume sexual activity in: No Restrictions Ice area for (Minutes): 20 - once an hour as needed for swelling / inflammation Weight Bearing Status: Weight bearing as tolerated Lifting Restrictions: No lfting over 5 pounds Keep extremity elevated above heart level: Operative Extremity, Right Arm Call your doctor if your incision/area has: Continuous Slow Oozing, Sudden Increased Bleeding, Increased Pain/ Swelling, Increased Redness, Foul Smelling Discharge Call your doctor if you observe: Fever of 101 or Higher, Coldness, Increased Pain, Numbness or Tingling, Change in Color, Shortness of breath, Calf discomfort Suture Line Care: Avoid Pulling/Pushing, Avoid Pinching/Bending Change Dressing in (Days):: 2 - days Cleanse incision/area with: Do not get Incision Wet, Keep Dressing Clean & Dry Additional Instructions: Patient is to continue oral bactrim until final culture report with sensitivity is back. We will notify him of results and any change to medication based on culture sensitivities. Allergies/Adverse Reactions: Allergies No Known Allergies Allergy (Verified 06/08/18 11:18) Medications to take at Discharge Citalopram [Celexa] 40 mg PO DAILY 12/17/16 Ibuprofen [Motrin] 800 mg PO Q8 PRN #30 tablet 12/19/16 Hydrochlorothiazide [Hctz] 25 mg PO DAILY 06/08/18 Lisinopril 5 mg PO DAILY 06/08/18 Rosuvastatin Calcium [Crestor] 5 mg PO DAILY 06/08/18 Sulfamethoxazole/Trimethoprim [Bactrim 400-80 mg Tablet] 1 each PO BID 06/08/18 Oxycodone HCl/Acetaminophen [Percocet 5/325] 1 - 2 tablet PO Q6H PRN PRN 3 Days #20 tablet 06/09/18 The following prescriptions were given: Oxycodone HCl/Acetaminophen [Percocet 5/325] 1 - 2 tablet PO Q6H PRN PRN 3 Days #20 tablet PRN Reason: Pain Primary Care Physician: Too Townsend MD [Primary Care Provider] - Test Results: Test results from this visit will be discussed in further detail at your follow- up appointment, if applicable. Please Follow Up With: Marina Cagle DO - [phone] When: or Sunday Proposed Discharge Date: 06/10/18
[2018-06-10 13:00] VITALS: BP 137/60; PULSE 60; RESP 16; TEMP 36.6; O2SAT 97
== END 2018-06-10 14:04 | disposition home or self-care (01) | DRG 906 ==
LOC: ED 12:33 → MS3 14:06
PROVIDERS: Admitting Provider Orthopaedic Surgery; Emergency Provider Emergency Medicine; Family Provider Family Medicine; PCP Family Medicine; Visit Provider Orthopaedic Surgery
PROC: 0JCJ0ZZ Extirpation of Matter from Right Hand Subcutaneous Tissue and Fascia, Open Approach (ICD-10-PCS; principal; 2018-06-09 08:30)
DX: S61.441A Puncture wound with foreign body of right hand, initial encounter (principal); L03.113 Cellulitis of right upper limb; X58.XXXA Exposure to other specified factors, initial encounter; F32.9 Major depressive disorder, single episode, unspecified; E66.9 Obesity, unspecified; Z68.33 Body mass index [BMI] 33.0-33.9, adult
CPT/HCPCS: 73200; 76377; 80048; 85025; 85652; 86140; 87070; 87075; 87077; 87102; 87205; 87206; 88300; 93005; 99282; J2185; J7030; A4216; J0295; J2405

== ENCOUNTER 2018-06-14 09:43 | Outpatient (RCR) | payer OTHER, SELFPAY ==
[2018-06-14 09:18] VITALS: BMI 34.1
--- NOTE | 2018-06-14 14:18 | HP.OTEVAL_ITS ---
Patient's Visit Information SAJI CUTLER is a 37 year old M, referred to Occupational Therapy by Marina Cagle DO, with a diagnosis of I and D R first finger. Date of Evaluation: 06/14/18 Occupational Therapist: Camilla Braga - Subjective Subjective: Arrived with after follow-up with Dr. Gallagher. He noted that last Sunday was picking up wood when 2-inch piece went through his hand. He noted went to ER but ER did not do anything as needed ortho consult. Had ortho consult 2 days following injury in which he noted he developed infection. He arrived after follow-up from Dr. Cagle?s office or need for protective splinting. OT talked with Dr. Cagle office who noted he needed CMC thumb spica brace to promote 'no movement of thumb.' - ADLs Comments: He is R hand dominant so increased difficulty with all ADL/IADLs tasks as well as work related tasks. - Objective Objective/Observation: 3x stitches intact, skin closed and healing. Edema around thenar eminence. - ROM MP: R 0-66, L 0-61 IP: R -30-0-56, L -30-0-65 Radial Abduction: R 0-45, L 0-56 MP: WFL PIP: WFL DIP: WFL - Strength [employer]: R 119, L 125 Lateral Pinch: R 25, L 26 Tripod Pinch: Lost when computer crashed Tip-to-Tip Pinch: Lost when computer crashed - Edema Other: edema over thenar eminence - Quick DASH-Disab of Arm,Shoulder& Hand Quick DASH Score: 16.6650 - Goals Goal:: Saji to be (I0 to complete edema management techniques if needed to R thumb to manage swelling 4/5 trials 80% of the time by d/c. Goal:: Saji to be mod I to complete splint management protocol to faciliate healing and decrease risk fo further injury 4/ 5trials 80% of the time by d/c. - Rehabilitation General Assessment: Arrived and [facility] walk over from Dr. Cagle's office. Ot talked with Nanette from Dr. Cagle's office and she noted he needed CMC brace with IP free. Completed fabrication of CMC thumb spica splint with wrist free for protection when retruning to work. He is to follow up 1x next week for splint adjustment if needed. Educated on splint and handout provided. Rehabilitation Potential: Good - Anticipated Interventions Anticipated Interventions: A/AAROM/PROM, Scar Care, Modalities, Orthoses, Caregiver Training, Home Program - Visit Plan Frequency: 1x/Week Duration: splint check follow up General Plan: OT will follow up next week to ensure splint fitting properly. Additional follow up to be schedule after splint check if needed as he continues to heal. WIll address ROM, strength, and returning to fx use of R thumb as appropriate with healing of soft tissue. TEXT: Thank you for the opportunity to evaluate your patient. For Medicare and Medicare HMO plans, please review the plan of care and approve it. It will need to be FAXED BACK to us at [phone] for Medicare purposes. Please let me know if there are questions or concerns regarding this plan of care. Physician Signature: Date:
--- NOTE | 2018-08-07 19:31 | HP.OT.NRP ---
HP - Discharge Summary - Patient Information ZACK CUTLER was seen in my office for initial evaluation on 06/14/18. The following Plan of Care was established for this patient: Initial Frequency: 1x/Week Initial Duration: splint check follow up - Anticipated Interventions Anticipated Interventions: A/AAROM/PROM, Scar Care, Modalities, Orthoses, Caregiver Training, Home Program This patient was last seen in our office 06/14/18. Pertinent comments regarding their Occupational therapy will appear below: Seen for fabricated of protective splint. Chart was kept open if there was need for alterations of splint. Did not need adjustments and will be d/c'd at this time. At this point I will be discontinuing this patient from occupational therapy. I would be happy to see this patient again in the future if found appropriate by the physician. Thank you! Camilla Braga, OTR/L
== END 2018-06-14 19:00 | disposition home or self-care (01) ==
LOC: OT 09:43
PROVIDERS: Family Provider Family Medicine; PCP Family Medicine; Referring Provider Orthopaedic Surgery; Visit Provider Orthopaedic Surgery
DX: Z98.890 Other specified postprocedural states (principal)
CPT/HCPCS: 97166; 97168

== ENCOUNTER → 2018-08-06 | Outpatient (CLI) | payer OTHER, SELFPAY ==
[2018-08-06 12:27] VITALS: BMI 34.1
--- NOTE | 2018-08-06 12:33 | RAD_ITS ---
STUDY: X-RAY - RIGHT ANKLE REASON FOR EXAM: Male, 38 years old. Right ankle pain after injury. TECHNIQUE: 3 view(s) of the ankle. COMPARISON: None. FINDINGS: Normal visualized distal tibia and fibula. Normal medial and lateral malleoli. Normal tibiotalar articulation and ankle mortise. Normal visualized talus and calcaneus. The visualized subtalar, talonavicular, calcaneocuboid and tarsal articulations are normal. The soft tissue structures are unremarkable. RAD/Ankle min 3 Views IMPRESSION: Normal x-ray examination of the ankle. Electronically Signed: Agustin Graham MD at 12:49 EDT , Service support ,
== END | disposition home or self-care (01) ==
LOC: HPRAD 12:33
PROVIDERS: Family Provider Family Medicine; PCP Family Medicine; Referring Provider Orthopaedic Surgery; Visit Provider Orthopaedic Surgery
DX: M25.571 Pain in right ankle and joints of right foot (principal)
CPT/HCPCS: 73610

== ENCOUNTER 2018-09-04 17:58 | Outpatient (RCR) | payer OTHER, SELFPAY ==
[2018-08-06 12:27] VITALS: BMI 34.1
--- NOTE | 2018-09-16 08:16 | HP.PTEVAL ---
Patient's Visit Information ZACK CUTLER is a 38 year old M referred to Physical Therapy by Marina Cagle DO with a diagnosis of R ankle sprain. Date of Evaluation: 09/04/18 Physical Therapist: Lane Mcmahan DPT - Visit Plan Frequency: 1x/Week Duration: 1 Week Plan: I gave him some ankle stability exercises adn strengthening exercises to work on at home. Pt. as bands and a BOSU ball to change strength and proprioception.I talked to him about strengtheing as much as he can to increase stability to reduce stress at ankle joint with all functional and recreational activities. Pt. to continue with exerciss on own. - Subjective Findings: Pt. is here today for his initial evalatuon with R ankle sprain. Pt. reports hurting his ankle ~1 year ago when he was kneeling for a long time and when he got up his legs were asleep. This resulted in him loosing his balance and attempting to catch hims self, resulting in turning his ankle. Pt. reports he has no issues with most of his daily activities, but has increased pain by then end of the day. He denies N/T. Pt. has tried some icing, but is no longer doing so. He is also is concerned about his edema. Pt. is hopeful to decrease his symptoms in order to allow him to complete all recreational and work activities without limtations. - Pain R ankle Pain Intensity (Out of 10): 0 Pain Intensity Range: 0, 3 - Objective POSTURE: Pt. has normal posture in stance, slight increased lateral wt. shift. PALPATION: Pt. has slight tenderness at ATFL, no pain at CFL. No achilles pain. NEURO: normal throughout. ROM: Pt. has slight loss in DF, and EVR 10deg respectively. MMT: Pt. has 4+/5 throughout, slight increase in EVR attempts. Rest of leg is 5/5 throughout. GAIT: Pt. ambulats with normal paittern, he does have slight difficulty with with descending steps. pt. has slight genus varum as well. Balance- Pt. has increased difficulty in SLS, no pain alot of frquent wt. shifting to correct instability. - Goals Goal 1:: Pt. to be I with HEP. Goal Time Frame: 1 day - Rehabilitation Potential Physical Therapy Diagnosis: Pt. does has slight instability at his ankle, mild increase insymptoms iwth anterior drawer. Pt. has sligth decrease in stregnth and ROM as well has imbalance in most SLS positions. Pt. would benefit from PT to increase ROM, strength and proprioception of ankle. Rehabilitation Potential: Excellent - Anticipated Interventions Patient/Client Instruction: Educate patient on: Condition, Plan of Care, Risk Factors, Benefits of Fitness Program For the Purpose of:: To facilitate caregiver knowledge, To improve self management, To prevent re-injury, To improve ability to perform tasks related to life management, To improve tolerance to ADL's Therapeutic Exercise to Include: Strength training, Power training, Body mechanics, Postural training, Flexibilty training, Passive ROM, Active ROM For the Purpose of:: To decrease pain, To decrease swelling/inflammation, To increase ROM, To improve muscle performance and motor function, To decrease soft tissue restriction, To increase flexibility/ROM Thank you for the opportunity to evaluate your patient. For Medicare and Medicare HMO plans, please review the plan of care and approve it. It will need to be FAXED BACK to us at [phone] for Medicare purposes. For Medicare only, by signing this I certify the plan of care. Please let me know if there are questions or concerns regarding this plan of care. Physician Signature: Date:
== END 2018-09-04 19:00 | disposition home or self-care (01) ==
LOC: PT 17:58
PROVIDERS: Family Provider Family Medicine; PCP Family Medicine; Referring Provider Orthopaedic Surgery; Visit Provider Orthopaedic Surgery
DX: S93.401D Sprain of unspecified ligament of right ankle, subsequent encounter (principal)
CPT/HCPCS: 97110; 97161

== ENCOUNTER → 2018-10-19 | Outpatient (CLI) | payer OTHER, SELFPAY ==
[2018-08-06 12:27] VITALS: BMI 34.1
[2018-10-19 10:47] LABS: Anion Gap 6 (5-15); BUN 18 mg/dL (7-18); BUN/Creat Ratio 15.7 RATIO (10-20); Calcium,Total 8.6 mg/dL (8.5-10.1); Chloride 104 mmol/L (98-107); Cholesterol 166 mg/dL (200); Creatinine, Serum 1.15 mg/dL (0.70-1.30); EST Glomerular Filtration Rate 76 mL/min (>60); Est Glom Filt Rate - Afr Amer 91 mL/min (>60); Glucose 100 mg/dL (74-106); High Density Lipoprotein 40 mg/dL; Potassium 3.9 mmol/L (3.5-5.1); Sodium Level 139 mmol/L (136-145); Triglycerides 167 mg/dL; Very Low Density Lipoprotein 33 mg/dL (5-40)
== END | disposition home or self-care (01) ==
LOC: LAB 09:02
PROVIDERS: Family Provider Family Medicine; PCP Family Medicine; Referring Provider Family Medicine; Visit Provider Family Medicine
DX: I10 Essential (primary) hypertension (principal)
CPT/HCPCS: 36415; 80048; 80061

== ENCOUNTER 2018-11-07 15:57 | Emergency (ER) | payer OTHER, SELFPAY ==
[2018-08-06 12:27] VITALS: BMI 34.1
[2018-11-07 15:57] VITALS: BP 134/82; PULSE 78; RESP 16; TEMP 36.4; O2SAT 98; BMI 34.4
[2018-11-07 16:23] LABS: Basophil# 0.05 X10^3/uL; Basophil% 0.8 % (0-1); Eosinophil# 0.12 X10^3/uL; Eosinophils% 1.8 % (0-5); Hematocrit 45.4 % (40-54); Hemoglobin 15.5 g/dL (13.0-16.5); Lymphocyte % 30.2 % (19-41); Mean Corp Hgb Conc 34.1 g/dL (32-36); Mean Corpuscular Hgb 29.8 pg (27.0-32.0); Mean Corpuscular Volume 87.3 fL (80-94); Mean Platelet Vol. 9.6 fl (6.2-12.0); Monocyte# 0.43 X10^3/uL; Monocyte% 6.5 % (0-10); NRBC Flagged by Analyzer 0 % (0-5); Neutrophil # 4.03 X10^3/uL (2.7-7.7); Neutrophil % 60.7 % (47-70); Platelet Count 246 K/mm3 (150-450); RBC Distribution Width CV 11.7 % (11.6-14.6); RBC Distribution Width SD 37.3 fl (35.1-43.9); White Blood Count 6.6 K/mm3 (4.4-11.0)
[2018-11-07 16:38] LABS: Anion Gap 3 (5-15); BUN 20 mg/dL (7-18); BUN/Creat Ratio 16.9 RATIO (10-20); Calcium,Total 8.7 mg/dL (8.5-10.1); Chloride 108 mmol/L (98-107); Creatinine, Serum 1.18 mg/dL (0.70-1.30); EST Glomerular Filtration Rate 73 mL/min (>60); Est Glom Filt Rate - Afr Amer 89 mL/min (>60); Estimated Creatinine Clearance 79.36 ml/min; Glucose 94 mg/dL (74-106); Potassium 3.9 mmol/L (3.5-5.1); Sodium Level 141 mmol/L (136-145)
--- NOTE | 2018-11-07 16:55 | CT_ITS ---
STUDY: CT ABDOMEN AND PELVIS WITH CONTRAST REASON FOR EXAM: Male, 38 years old. Abdominal pain, bloody stool RADIATION DOSAGE (If Supplied By Facility): CTDIvol = ( 20.44 ) mGy, DLP = ( 1128.37 ) mGycm TECHNIQUE: Transaxial images were obtained from the dome of the diaphragm to the symphysis pubis without oral contrast. 75ML IV/Oral Isovue 370 was administered. Sagittal and coronal images were reconstructed. Individualized dose optimization techniques were used for this CT. COMPARISON: None. FINDINGS: Nonspecific peripheral 4 mm right lung base nodular density. The visualized portions of the heart are within normal limits. Normal liver. Normal gallbladder and extrahepatic biliary system. Normal spleen. Normal pancreas. Normal bilateral adrenal glands. Normal right kidney. 1.8 cm parapelvic cyst in the left kidney. Normal visualized stomach. Normal small intestine. Possible rectal wall thickening versus incomplete distention. The appendix is visualized and appears normal. Normal abdominal aorta. Normal inferior vena cava. Normal retroperitoneum. Normal urinary bladder. Bilateral subcentimeter inguinal nodes. Fatty density in the left side of the scrotum. Small fatty umbilical hernia. Normal osseous structures. CT/Abdomen/Pelvis WITH Contrast IMPRESSION: Left renal cyst. Small fatty umbilical hernia. Possible rectal wall thickening versus incomplete distention. Electronically Signed: Mitesh Blake DO at 19:02 EDT Tel [phone], Service support ,
[2018-11-07 17:27] LABS: AST(SGOT) 34 U/L (15-37); Alanine Aminotransfer ALT/SGPT 46 U/L (16-61); Albumin, Serum 4.5 g/dL (3.2-5.0); Alkaline Phosphatase 155 U/L (45-117); Bilirubin, Direct 0.18 mg/dL (0.00-0.30); Protein, Total 7.5 g/dL (6.4-8.2)
--- NOTE | 2018-11-07 18:29 | ED.DCSUM_ITS ---
- ER Visit Summary Date of Service: 11/07/18 Chief Complaint: Abdominal pain and rectal bleeding History of Present Illness: The patient is a 38 M who presents with rectal bleeding and abdominal pain that began today. Patient states the pain is diffuse across his abdomen and feels like it is aching. Patient states he started with dark stools which is now bright red blood. Patient states his stools are watery. Patient denies any dysuria or hematuria. Patient denies any nausea or vomiting. Patient states nothing makes his pain better or worse. Physical Examination: Vital signs are stable. Patient is afebrile. Patient is in no acute distress. Oral mucosa is pink and moist. Neck is supple. Trachea is midline. There is no JVD noted. Heart was regular rate and rhythm. Lungs are clear and equal bilaterally. Abdomen is soft. Bowel sounds are normal. There is mild diffuse tenderness. There is no rebound or guarding noted. Rectal exam showed good sphincter tone. There is dark stool in the rectum. There were no masses palpated. Cranial nerves II through XII are intact. There are no focal motor or sensory deficits noted. Test Results: CBC was normal. Basic metabolic profile showed a BUN of 20 but was otherwise normal. Liver profile showed alk phos slightly elevated 155. Stool was guaiac positive. CT scan of the abdomen pelvis was obtained. There is a left renal cyst. There is a small fatty umbilical hernia. There is rectal wall thickening. This is interpreted by the radiologist and reviewed by myself. Emergency Department Course and Treatment: Patient is feeling better on ree valuation. Patient was given a prescription for Augmentin. Patient was instructed to follow-up with his primary care physician in 3-5 days. Patient was instructed to return if worse in any way. Patient was advised he may need to see a digital specialist if this persists. Patient and family understood and were agreeable with this plan. All questions were answered. Disposition: Discharge home Impression: Rectal colitis This note was generated with [employer] dictation software. It may contain incorrect words, spelling, and punctuation that were not noted in review of the chart prior to signing ED Disposition - Plan for ED Patient: Disposition: Home or Assisted Living Diagnosis: Colitis with rectal bleeding Instructions: RECTAL BLEED, Stable Prescriptions: Amox/Clavulanate Tablet [Augmentin Tablet] 875 mg PO Q12H #20 tab Prescription Printed Referrals: Too Townsend MD [Primary Care Provider] - 3-5 Days
[2018-11-07 19:54] VITALS: BP 129/81; PULSE 72; RESP 16; O2SAT 99
== END 2018-11-07 19:54 | disposition home or self-care (01) ==
PROVIDERS: Emergency Provider Emergency Medicine; Family Provider Family Medicine; PCP Family Medicine
DX: K52.9 Noninfective gastroenteritis and colitis, unspecified (principal); K62.5 Hemorrhage of anus and rectum; I10 Essential (primary) hypertension; E78.00 Pure hypercholesterolemia, unspecified; F41.9 Anxiety disorder, unspecified; Z72.0 Tobacco use; Z79.899 Other long term (current) drug therapy
CPT/HCPCS: 74177; 80048; 80076; 82274; 85025; 99283; Q9967; A4216

== ENCOUNTER → 2018-11-27 | Outpatient (CLI) | payer OTHER, SELFPAY ==
[2018-11-07 15:57] VITALS: BMI 34.4
[2018-11-27 17:48] LABS: Absolute Lymphocyte Count 2.55 X10^3/uL (0.83-4.51); Absolute Neutrophil Count 3.5 X10^3/uL (2.0-7.7); Basophil# 0.04 X10^3/uL; Basophil% 0.6 % (0-1); Eosinophil# 0.21 X10^3/uL; Eosinophils% 3.1 % (0-5); Hematocrit 44.3 % (40-54); Hemoglobin 15.1 g/dL (13.0-16.5); Lymphocyte # 2.55 X10^3/ul (4.0); Lymphocyte % 37.1 % (19-41); Mean Corp Hgb Conc 34.1 g/dL (32-36); Mean Corpuscular Hgb 30.4 pg (27.0-32.0); Mean Corpuscular Volume 89.3 fL (80-94); Mean Platelet Vol. 9.3 fl (6.2-12.0); Monocyte# 0.52 X10^3/uL; Monocyte% 7.6 % (0-10); NRBC Flagged by Analyzer 0 % (0-5); Neutrophil # 3.54 X10^3/uL (2.7-7.7); Neutrophil % 51.5 % (47-70); Platelet Count 258 K/mm3 (150-450); RBC Distribution Width CV 11.9 % (11.6-14.6); RBC Distribution Width SD 38.6 fl (35.1-43.9); Red Blood Count 4.96 M/mm3 (4.6-6.2); White Blood Count 6.9 K/mm3 (4.4-11.0)
--- NOTE | 2018-11-27 17:51 | RAD_ITS ---
STUDY: X-RAY CHEST REASON FOR EXAM: Male, 38 years old. Pain TECHNIQUE: Frontal and lateral views COMPARISON: None FINDINGS: The lungs are clear and expanded. There is no demonstrated pleural abnormality. Normal size heart. Normal mediastinum and johan. Normal visualized pulmonary arteries. Normal visualized aortic arch and descending thoracic aorta. Normal visualized thoracic spine. Normal visualized ribs, clavicles, and shoulders. There is no demonstrated abnormality of the visualized soft tissue structures of the upper abdomen. RAD/Chest PA and Lateral IMPRESSION: Normal x-ray examination of the chest. Electronically Signed: Mitesh Blake DO at 18:05 EDT Tel [phone], Service support ,
[2018-11-27 18:21] LABS: ALB/GLOB Ratio 1.3 RATIO (0.9-2.4); AST(SGOT) 31 U/L (15-37); Alanine Aminotransfer ALT/SGPT 55 U/L (16-61); Alkaline Phosphatase 124 U/L (45-117); Anion Gap 2 (5-15); BUN 13 mg/dL (7-18); BUN/Creat Ratio 11.9 RATIO (10-20); Calcium,Total 8.5 mg/dL (8.5-10.1); Chloride 107 mmol/L (98-107); Creatinine, Serum 1.09 mg/dL (0.70-1.30); EST Glomerular Filtration Rate 80 mL/min (>60); Est Glom Filt Rate - Afr Amer 97 mL/min (>60); Globulin 3.1 g/dL (2.2-4.2); Glucose 100 mg/dL (74-106); Potassium 4.1 mmol/L (3.5-5.1); Protein, Total 7.1 g/dL (6.4-8.2); Sodium Level 140 mmol/L (136-145)
[2018-11-27 18:33] LABS: Erythrocyte Sedimentation Rate < 1 mm/hr (0-15)
== END | disposition home or self-care (01) ==
PROVIDERS: Family Provider Family Medicine; PCP Family Medicine; Referring Provider Family Medicine; Visit Provider Family Medicine
DX: R10.9 Unspecified abdominal pain (principal)
CPT/HCPCS: 36415; 71046; 80053; 85025; 85652

== ENCOUNTER → 2018-12-06 | Outpatient (CLI) | payer OTHER, SELFPAY ==
[2018-11-07 15:57] VITALS: BMI 34.4
--- NOTE | 2018-12-06 09:14 | US_ITS ---
STUDY: ABDOMINAL ULTRASOUND - RIGHT UPPER QUADRANT REASON FOR VISIT: Male, 38 years old. Right upper quadrant pain TECHNIQUE: Ultrasound evaluation of the right upper quadrant was performed with real-time and static veloz-scale imaging. TECHNICAL QUALITY: Adequate. COMPARISON: 07 November 2018 FINDINGS: Liver: The liver measures 18 cm. Hepatic echogenicity is increased. The bile ducts are within normal limits. There is hepatic color flow. The direction of portal flow is hepatopetal. There is no demonstrated mass lesion. Gallbladder: Normal distended gallbladder. The gallbladder wall measures 3 mm. There is a negative sonographic Ramey's sign. There is no pericholecystic fluid. There are no stones. There is a 5 m polyp. Common Bile Duct (C.B.D.): The common bile duct measures 3 mm. Pancreas: Not visualized Right Kidney: Normal size of the right kidney. The right kidney measures 12.4 x 5.0 x 4.8 cm. Normal renal cortex. The right cortex measures 1.3 cm. There is no demonstrated renal mass or cyst. There is no right hydronephrosis. US/Abdomen Limited IMPRESSION: 1. No acute findings. 2. Possible hepatic steatosis. 3. 5 mm gallbladder polyp, a benign finding Electronically Signed: Mindy Hernandez, at 19:04 EDT Tel , Service support ,
== END | disposition home or self-care (01) ==
LOC: US 09:06
PROVIDERS: Family Provider Family Medicine; PCP Family Medicine; Referring Provider Family Medicine; Visit Provider Family Medicine
DX: R10.9 Unspecified abdominal pain (principal)
CPT/HCPCS: 76705

== ENCOUNTER → 2019-02-13 06:29 | Outpatient (CLI) | payer OTHER, SELFPAY ==
[2019-02-13 08:26] LABS: Anion Gap 6 (5-15); BUN 16 mg/dL (7-18); BUN/Creat Ratio 14.8 RATIO (10-20); Calcium,Total 8.3 mg/dL (8.5-10.1); Chloride 108 mmol/L (98-107); Cholesterol 171 mg/dL (200); Creatinine, Serum 1.08 mg/dL (0.70-1.30); EST Glomerular Filtration Rate 81 mL/min (>60); Est Glom Filt Rate - Afr Amer 98 mL/min (>60); Glucose 99 mg/dL (74-106); High Density Lipoprotein 36 mg/dL; Sodium Level 143 mmol/L (136-145); Triglycerides 244 mg/dL; Very Low Density Lipoprotein 49 mg/dL (5-40)
== END ==
PROVIDERS: Family Provider Family Medicine; PCP Family Medicine; Referring Provider Family Medicine; Visit Provider Family Medicine
DX: I10 Essential (primary) hypertension (principal); E78.5 Hyperlipidemia, unspecified
CPT/HCPCS: 36415; 80048; 80061

== ENCOUNTER → 2019-10-06 09:06 | Outpatient (CLI) | payer OTHER, SELFPAY ==
--- NOTE | 2019-10-06 | ASPOS_PTH ---
PATIENT: ZACK CUTLER LOC: [facility] U#:[id number] AGE/SX: 44/M ROOM: RE10/06/[address]: Dr. Jamal Ho MD : 1980 BED: DIS: SPEC #: [id number] RECD: 10/06/19 10:23 STATUS: NOHEMY NEY #: [id number] DISHA: 10/06/19 00:[address]: Jamal Ho DEPT: CYTOLOGY RECD BY: Luis Fernando Matthews ENTERED: 10/06/19 10:23 SP TYPE: ASP HERE OTHR DR: Dr. Too Townsend MD Tissues: Neck, NOS Procedures: Surgery Specimen Level IV Cytology Other Fine Needle Asp on Site HEADER OPERATION: FNA left neck mass PRE-OP DIAGNOSIS: Left neck mass TISSUE SUBMITTED: FNA left neck mass (smears, fluid for cytology and cell block) DIAGNOSIS CYTOLOGY Fine needle aspiration, left neck mass (smears and cell block): Mature adipose tissue consistent with lipoma. AM:adalberto 10/07/19 COMMENT The specimen is evaluated at the time of FNA by Dr. Mills. Immediate Evaluation = mature adipose tissue consistent with lipoma. CYTOLOGY STUDY Slides are reviewed. CYTOLOGY GROSS Received is 0.1 ml of yellow-butler fluid labeled with the patient's name, and designated left neck mass. Three imprints and two paps are made from the submitted fluid and the rest is added to CytoLyt for cell block preparation. Submitted for cytology study. / AM:adalberto 10/06/19 TC:5 CPT: 18934, 56816, 75131, 16538
== END ==
PROVIDERS: PCP Family Medicine; Referring Provider Otolaryngology; Visit Provider Otolaryngology
DX: R22.1 Localized swelling, mass and lump, neck (principal)
CPT/HCPCS: 10021; 88161; 88305

== ENCOUNTER → 2019-10-10 | Outpatient (CLI) | payer OTHER, SELFPAY ==
--- NOTE | 2019-10-10 13:27 | CT_ITS ---
STUDY: CT SOFT TISSUE NECK WITH CONTRAST REASON FOR EXAM: Male, 39 years old. Lump left neck x one month. Makes neck sore per patient. RADIATION DOSAGE (If Supplied By Facility): CTDIvol = ( 18.99 ) mGy, DLP = ( 593.10 ) mGycm TECHNIQUE: The patient was scanned in a multi-detector CT scanner. High resolution transaxial imaging was performed following intravenous administration of IV 75mL Isovue-300. Sagittal and coronal images were reconstructed. Individualized dose optimization techniques were used for this CT. COMPARISON: None. FINDINGS: There is a 7.5 cm x 2 cm x 4.6 cm lipoma in the inferior aspect of the left sternocleidomastoid mastoid muscle. Normal bilateral parotid glands. Normal bilateral detective spaces. Normal bilateral parapharyngeal spaces. Normal bilateral carotid spaces. Normal bilateral sublingual and submandibular glands and spaces. Normal visualized nasopharynx. Normal retropharyngeal space. Normal perivertebral space. Normal visualized bilateral faucial tonsils. The visualized tongue, tongue base and oropharynx are normal. There are minimally enlarged lymph nodes of the neck, with preservation of normal gracie architecture, consistent with a reactive lymph hyperplasia. There is no demonstrated solid or cystic mass lesion. There is no abnormal contrast enhancement. Normal epiglottis, bilateral vallecula and hypopharynx. The pre-epiglottic and paraglottic adipose spaces are normal. Normal visualized bilateral piriform sinuses, aryepiglottic folds, vocal cords, and arytenoid-cricoid articulations. Normal subglottic trachea. Normal bilateral lobes of the thyroid gland. Normal visualized pulmonary apices. Partial opacification of the medial aspect of the right sphenoid sinus. Mucosal thickening of the ethmoid sinuses bilaterally. Normal visualized cervical spine. CT/Soft Tissue Neck WITH Contrast IMPRESSION: The palpable abnormality corresponds to a 7.5 cm x 2 cm x 4 0.6 mL lipoma within the inferior aspect of the left sternocleidomastoid muscle. Electronically Signed: Daniel Sun, at 13:53 EDT , Service support ,
== END | disposition home or self-care (01) ==
PROVIDERS: PCP Family Medicine; Referring Provider Otolaryngology; Visit Provider Otolaryngology
DX: R22.1 Localized swelling, mass and lump, neck (principal)
CPT/HCPCS: 70491; Q9967

== ENCOUNTER → 2019-11-05 | Outpatient (CLI) | payer BC, SELFPAY ==
[2019-11-05 06:53] VITALS: BMI 34.4
== END | disposition home or self-care (01) ==
LOC: LABSPEC 11:50
PROVIDERS: PCP Family Medicine; Visit Provider Physician Assistant
DX: L02.91 Cutaneous abscess, unspecified (principal)
CPT/HCPCS: 87070; 87077; 87186; 87205; 96374; 96375

== ENCOUNTER 2019-11-25 08:34 | Outpatient (RCR) | payer BC, SELFPAY ==
[2019-11-17 17:54] VITALS: BMI 34.4
[2019-11-25 09:05] VITALS: BP 140/76; PULSE 89; RESP 18; TEMP 36.7; BMI 34.4
--- NOTE | 2019-11-25 10:11 | HP.PCM_ITS ---
(1) Hypertension Status: Chronic Current Visit: No Code(s): I10 - Essential (primary) hypertension (2) Hyperlipidemia Status: Chronic Current Visit: No Code(s): E78.5 - Hyperlipidemia, unspecified (3) Tobacco abuse Status: Chronic Current Visit: No Code(s): Z72.0 - Tobacco use (4) Tobacco abuse counseling Status: Chronic Current Visit: No Code(s): Z71.6 - Tobacco abuse counseling (5) MRSA (methicillin resistant staph aureus) culture positive Status: Acute Current Visit: Yes Code(s): Z22.322 - Carrier or suspected carrier of Methicillin resistant Staphylococcus aureus (6) MRSA (methicillin resistant Staphylococcus aureus) infection Status: Acute Current Visit: Yes Code(s): A49.02 - Methicillin resistant Staphylococcus aureus infection, unspecified site (7) Lipoma of neck Status: Chronic Current Visit: No Code(s): D17.0 - Benign lipomatous neoplasm of skin and subcutaneous tissue of head, face and neck (8) Depression Status: Chronic Current Visit: No Qualifiers: Code(s): F32.9 - Major depressive disorder, single episode, unspecified (9) Obesity (BMI 35.0-39.9 without comorbidity) Status: Chronic Current Visit: No Code(s): E66.9 - Obesity, unspecified (10) Cellulitis Status: Acute Current Visit: Yes Qualifiers: Site of cellulitis: extremity Site of cellulitis of extremity: lower extremity Laterality: right Qualified Code(s): L03.115 - Cellulitis of right lower limb Code(s): L03.90 - Cellulitis, unspecified History of Present Illness Date of Service: 11/25/19 Chief Complaint: MRSA wound infection, right leg History of Wound: This is a 39-year-old male who presents with a MRSA wound infection of the right lateral calf. On or about October 28, 2019, the patient believes that he was bitten by an insect on the right lateral calf. Over the next few days, it became increasingly more painful and reddened, and he currently presented to the urgent care center for evaluation on November 05, 2019. The patient was treated with a prescription for doxycycline, and cultures were obtained. The cultures subsequently were positive for MRSA. The patient was treated with a prescription for Bactrim, and again presented to the urgent care facility on November 17, 2019, where a second prescription for Bactrim was issued. The patient remains on Bactrim at this time. He continues to have pain and redness at the site, as well as itching. There is only a minor amount of drainage. The wound has failed to heal. He has been using Neosporin topically. Interestingly, the patient has a history of a MRSA infection of the right lower extremity in 2018, for which he acquired inpatient hospitalization. Past Medical History Past Medical History: Chronic Problems (Last Reviewed 11/17/19 @ 17:54 by Gabrielle Ybarra) Hypertension (Chronic) Hyperlipidemia (Chronic) Tobacco abuse (Chronic) Tobacco abuse counseling (Chronic) Lipoma of neck (Chronic) Depression (Chronic) Obesity (BMI 35.0-39.9 without comorbidity) (Chronic) Past Medical History: The patient's history is negative for myocardial infarction, congestive heart failure, cerebrovascular accident, diabetes mellitus, cancer, pulmonary disease, renal disease, and thyroid disease. He has a history of hypertension and hyperlipidemia. Surgical History: noncontributory, - - The patient has undergone surgery on the right hand due to impalement with a wooden fragment. Allergies/Adverse Reactions: Allergies No Known Allergies Allergy (Verified 11/17/19 17:54) Home Medications: Ambulatory Orders Medication Instructions Recorded Citalopram [Celexa] 40 mg PO DAILY 12/17/16 lisinopril 10 mg tablet ea PO 11/05/19 sulfamethoxazole 800 1 tab PO Q12H #20 tab 11/08/19 mg-trimethoprim 160 mg tablet sulfamethoxazole 800 1 tab PO BID #20 tab 11/17/19 mg-trimethoprim 160 mg tablet Hydrochlorothiazide [Hctz] 25 mg PO DAILY 11/25/19 Rosuvastatin Calcium DAILY 11/25/19 - Family History Maternal No pertinent history, - - The patient was estranged from his mother, and does not know her health history. Paternal No pertinent history, - - Patient's father at the age of 52 from complications of alcoholism Social History: The patient is . He lives with his . 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 He chews tobacco. He consumes alcoholic beverages occasionally. Lives: Spouse/ Significant Other Smoking Status: Never smoker Tobacco Use: Chew Alcohol: Rare Drugs: None Review of Systems Constitutional: Denies: Chills, Fever, Weight Change Eyes: Denies: Pain, Vision Change HEENT: Denies: Difficulty Hearing, Difficulty Swallowing, Sinus Congestion Cardiovascular: Denies: Chest Pain, Palpitations Respiratory: Denies: Cough, Shortness of Breath Gastrointestinal: Denies: Diarrhea, Nausea, Vomiting Genitourinary: Denies: Dysuria, Hematuria Endocrine: Denies: Heat/ Cold Intolerance, Polydipsia, Polyuria Hematologic/ Lymphatic: Denies: Easy Bruising, Easy Bleeding - Physical Exam Vital Signs Temp Pulse Resp BP 98.1 F 89 18 140/76 H 11/25/19 09:05 11/25/19 09:05 11/25/19 09:05 11/25/19 09:05 General: Alert, Oriented x3, Cooperative, No apparent distress, Well developed, Well nourished, - - Patient appears obese HEENT: Atraumatic, PERRLA, EOMI, Normocephalic Oral: Moist Mucosa Neck: No JVD Lungs: Normal air movement Abdomen: Soft, Non Tender, Non-Distended, Obese Extremities: No clubbing, No cyanosis, No edema, No Calf Tenderness, - - There is a very small wound on the right lateral calf. It is approximately 1 to 2 mm in diameter. In terms of depth, it is only approximately 1 to 2 mm. However, most significantly, there is a 1 to 2 cm rim of erythema. Wound Measurements and Assessment WC - Nurse 1 - General Ulcer Measurement Start: 11/25/19 08:36 Freq: Status: Active Protocol: Activity Type Activity Date Activity User E-Sign Co-Sign Detail Recorded Client Recorded Date Recorded By Document 11/25/19 09:05 [id number] 11/25/19 09:26 BEENA 11/25/19 09:05 Wound Center Nurse 1 [Ulcer Assessment] #1 RLE Lat -Current Size (cm) - Length 0.4 -Current Size (cm) - Width 0.5 -Current Size (cm) - Depth 0.1 -Total Square Cm 0.20 -Photo Taken Yes -Exudate Amt Small -Exudate Type Serosanguineous -Wound Margin Distinct, Outline Attached -Granulation Amt None Present (0 %) -Necrosis Amt Small (1-33%) -Necrotic Tissue Type Adherent Slough -Structure Exposed N/A -Texture (Tamra-wound Skin Appearance) Localized Edema -Moisture (Tamra-wound Skin Appearance No Abnormality ) -Color (Tamra-wound Skin Appearance) Erythema -Temperature (Tamra-wound Skin No Abnormality Appearance) (Pt Warm) -Tenderness on Palpation (Tamra-wound No Skin Appearance) -Ulcer Cleansing Wound Cleanser -Foul Odor after Cleansing No -Anesthetic Used 4% Lidocaine Solution [Edema Assessment] -Right Calf (cm) 43.5 -Right Ankle (cm) 22.5 Musculoskeletal: No Tenderness to Palpation of Joints or Extremities, No Muscle Wasting Neurological: Cranial nerves II-XII grossly intact, Neuro grossly intact Psych/Mental Status: Normal Affect, Appropriate, Alert and oriented to time, place, person, mood and affect Debridement Note Laterality: Right - Lateral calf Type of Debridement: Excisional debridement Anesthesia Used: 5% Lidocaine Gel Depth: Down to and including healthy tissue, in the subcutaneous layer Percentage of wound debrided: 100 Instrument Used: - - 1 mm curette Tissue Removed: Necrotic tissue and bioburden Severity: Fat Layer Exposed Amount of bleeding with debridement: Mild Bleeding Controlled with: Compression and gauze Patient tolerated procedure well Assessment/Plan Active Problems (Last Reviewed 11/17/19 @ 17:54 by Gabrielle Ybarra) MRSA (methicillin resistant staph aureus) culture positive (Acute) MRSA (methicillin resistant Staphylococcus aureus) infection (Acute) Cellulitis (Acute) Assessment: This is a generally healthy and active 39-year-old male who presents with a nonhealing wound on the right lateral calf, suspected to have its origin as an insect bite. It has become infected, and MRSA has been cultured. The patient has been treated with a prescription for doxycycline, as well as 2 courses of oral Bactrim. He has been using Neosporin ointment topically. Despite these treatment measures, the patient's wound has failed to heal, and signs of infection have persisted. Cultures have been obtained today, by swab, for both aerobic and anaerobic growth. The patient has previously been treated for a MRSA infection of the right lower extremity, arousing suspicion for possible nasal colonization. Plan: The patient has been instructed to discontinue his current course of Bactrim double strength. We are to initiate the use of clindamycin 300 mg p.o. every 6 hours for a total of 10 days. Additionally, Bactroban 2% cream has been prescribed for intranasal use. The Bactroban cream is to applied intranasally twice daily. Cultures have been obtained of the patient's right lateral calf wound, the results of which will be awaited. We are to use collagen hydrogel topically on the right lateral calf wound. Routine laboratory studies are to be obtained, including a CBC, comprehensive metabolic profile, and a serum prealbumin. A noninvasive lower extremity arterial study is not felt to be needed, given the patient's young age, and the fact that he does not smoke cigarettes. The patient is to return in 1 week. He has been instructed to seek medical attention should the erythema/cellulitic changes worsen to a significant degree. The patient stands 5 feet 7 inches tall. He weighs 220 pounds. His BMI is 34.4. This places him in an obese class I category. Weight optimization has been recommended. The patient has been advised to stop his tobacco habit. Influenza vaccine was not administered today.
== END 2019-11-26 23:59 ==
LOC: WC 08:34
PROVIDERS: PCP Family Medicine; Referring Provider Physician Assistant; Visit Provider Surgery
DX: S80.861A Insect bite (nonvenomous), right lower leg, initial encounter (principal); B95.62 Methicillin resistant Staphylococcus aureus infection as the cause of diseases classified elsewhere; W57.XXXA Bitten or stung by nonvenomous insect and other nonvenomous arthropods, initial encounter; E78.5 Hyperlipidemia, unspecified; I10 Essential (primary) hypertension; E66.9 Obesity, unspecified; L03.115 Cellulitis of right lower limb; F17.220 Nicotine dependence, chewing tobacco, uncomplicated; Z68.34 Body mass index [BMI] 34.0-34.9, adult
CPT/HCPCS: 11042; 87070; 87075; 87205; 99212; G0463

== ENCOUNTER 2019-11-26 21:33 | Observation (INO) | payer BC, SELFPAY ==
[2019-11-25 09:05] VITALS: BMI 34.4
[2019-11-26 21:33] VITALS: BP 117/54; PULSE 89; RESP 16; TEMP 36.8; O2SAT 98; BMI 35.6
--- NOTE | 2019-11-26 22:26 | ED.DCSUM_ITS ---
History of Present Illness Chief Complaint: Cellulitis Informant: Patient Narrative: 39-year-old male with no significant past medical history presents with concern for right lower extremity cellulitis. States is been present for the past 30 days. Has now been on 3 different antibiotics with no resolution. Concerned because he had significant MRSA infection before in the past requiring hospitalization. Denies any fever or chills. States it began as a infected hair. Was seen in wound clinic yesterday and started on mupirocin as well as clindamycin. Has now had 6 doses with no improvement. Past Medical History - Allergies and Home Meds Allergies/Adverse Reactions: Allergies No Known Allergies Allergy (Verified 11/26/19 21:35) Past Medical History: None Surgical History: noncontributory, - - The patient has undergone surgery on the right hand due to impalement with a wooden fragment. Lives: With Family Smoking Status: Never smoker Alcohol: None Drugs: None - Family History Maternal Family History: Reports: No pertinent history, - - The patient was estranged from his mother, and does not know her health history. Paternal Family History: Reports: No pertinent history, - - Patient's father at the age of 52 from complications of alcoholism Review of Systems General: Denies: Chills, Fever, Sweats Eyes: Denies: Visual changes - bilaterally, Diplopia ENT: Denies: Rhinorrhea, Sore throat Cardiovascular: Denies: Chest pain, Palpitations Respiratory: Denies: Dyspnea, Cough, Dyspnea on exertion Gastrointestinal: Denies: Abdominal pain, Nausea, Vomiting, Diarrhea, Melena, Hematochezia Genitourinary: Denies: Dysuria, Hematuria, Frequency Musculoskeletal: Denies: Back pain, Extremity Pain Skin: Reports: - - Cellulitis. Denies: Rash, Wounds Neurological: Denies: Headache, Weakness, Numbness Physical Exam Vital Signs/Narrative: Vital Signs Temp Pulse Resp BP Pulse Ox 11/26/19 21:33 98.2 F 89 16 117/54 L 98 General: Well nourished, Well developed, No Acute Distress Head: Normocephalic, Atraumatic Eyes: Perrl, EOMI ENT: Moist mucous membranes, No rhinorrhea Neck: Supple, Nontender Cardiovascular: Regular rate, Regular rhythm, No murmurs Respiratory: No distress, CTA bilaterally, Chest nontender Abdomen: Soft, Nontender, Nondistended, Normal bowel sounds Back: Nontender, Normal Inspection Extremities: Nontender, No edema Skin: Normal color, No rash, - - 3 x 3 cm area of cellulitis to the right lower extremity with central eschar. Neurological: Alert, Oriented x3, Cranial nerves II-XII grossly intact, Normal Strength, Normal Sensation Psychological: Normal affect, Normal Mood Diagnostic/Tx/Re-eval - Medical Decision Making Appears well nontoxic. Vital signs within normal limits. Blood cultures drawn. Labs reviewed which were done this morning which showed no significant abnormality other than a nonspecific transaminitis. Patient has been on antibiotics for 30 days without resolution and actually worsening cellulitis. Patient be given Zosyn and vancomycin. Spoke with hospitalist who is agreeable with admission. Patient admitted in stable condition. Impression: 1. Right lower extremity cellulitis failing outpatient treatment 2. Transaminitis ED Disposition - Plan for ED Patient: Disposition: Acute Care [facility]
[2019-11-26 22:35] VITALS: BP 140/92; PULSE 69; RESP 17; TEMP 36.3; O2SAT 97
[2019-11-26] MEDS: 0.9% Normal Saline 1,000 ML 999 ML IV (22:46)
[2019-11-26 23:02] VITALS: BP 140/90; PULSE 69; RESP 17; TEMP 36.3; O2SAT 99
--- NOTE | 2019-11-26 23:42 | PCM.HP.STD ---
Problem List (1) Hypertension Status: Chronic (2) Hyperlipidemia Status: Chronic (3) Tobacco abuse Status: Chronic (4) Tobacco abuse counseling Status: Chronic (5) MRSA (methicillin resistant staph aureus) culture positive Status: Acute (6) MRSA (methicillin resistant Staphylococcus aureus) infection Status: Acute (7) Lipoma of neck Status: Chronic (8) Foreign body hand-infection Status: Inactive Qualifiers: Encounter type: initial encounter Laterality: right Qualified Code(s): S60.551A - Superficial foreign body of right hand, initial encounter; L08.9 - Local infection of the skin and subcutaneous tissue, unspecified (9) Depression Status: Chronic Qualifiers: (10) Obesity (BMI 35.0-39.9 without comorbidity) Status: Chronic (11) Cellulitis Status: Acute Qualifiers: Site of cellulitis: extremity Site of cellulitis of extremity: lower extremity Laterality: right Qualified Code(s): L03.115 - Cellulitis of right lower limb History of Present Illness Date of Admission: 11/26/19 Chief Complaint: abscess of right leg The patient is a 39 year old M with a significant history of MRSA infection of his right knee; hypertension; depression; hyperlipidemia and tobacco abuse who presents to emergency department with a one-month history of right leg abscess. He initially noticed the area of abscess as a small opening like an insect bite . Later the area was productive for yellowish drainage. Associated with his symptoms is pain and erythema around the area. Patient completed a course of doxycycline; and 2 courses of Bactrim. With his symptom not improving he was referred to the wound center where he saw Dr. Sofia who prescribed p.o. clindamycin and mupirocin to his nares. A day after beginning the regimen of clindamycin and mupirocin patient was not noticing any symptoms so he came to the emergency department. Past Medical History Past Medical History (Chronic Problems): Chronic Problems (Last Reviewed 11/27/19 @ 01:[address] Taj Forrester MD) Hypertension (Chronic) Hyperlipidemia (Chronic) Tobacco abuse (Chronic) Tobacco abuse counseling (Chronic) Lipoma of neck (Chronic) Depression (Chronic) Obesity (BMI 35.0-39.9 without comorbidity) (Chronic) Medical History: Medical History (Last Reviewed 11/27/19 @ 01:[address] Taj Forrester MD) History of MRSA infection Z86.14 History of cellulitis Z87.2 HTN (hypertension) I10 Allergies No Known Allergies Allergy (Verified 11/26/19 21:35) Home Medications: Ambulatory Orders Medication Instructions Recorded Citalopram [Celexa] 40 mg PO DAILY 12/17/16 lisinopril 10 mg tablet 10 ea PO DAILY 11/05/19 Hydrochlorothiazide [Hctz] 25 mg PO DAILY 11/25/19 Rosuvastatin Calcium 5 mg PO DAILY 11/25/19 Clindamycin HCl 300 mg PO Q6H 11/26/19 Surgical History: - - The patient has undergone surgery on the right hand due to impalement with a wooden fragment. Psychiatric History: Depression Lives: With Family Smoking Status: Current every day smoker Tobacco Use: Chew Alcohol: None Drugs: None - *Family History Maternal History Items: - - The patient was estranged from his mother, and does not know her health history. Paternal History Items: - - Patient's father at the age of 52 from complications of alcoholism Review of Systems Constitutional: Denies: Chills, Fever, Weight Change HEENT: Denies: Head Aches, Sinus Congestion, Sinus Drainage Cardiovascular: Denies: Chest Pain, Palpitations Respiratory: Denies: Cough, Shortness of breath at rest, Sputum production Gastrointestinal: Denies: Abdominal Pain, Nausea, Vomiting Genitourinary: Denies: Dysuria Musculoskeletal: Denies: Joint Pain, Joint Tenderness Skin: Reports: Skin Changes - Erythema of right leg with small opening., -. Denies: Rash Neurological: Denies: Numbness, Tingling, Focal weakness Psychiatric: Denies: Anxiety, Depression, Homicidal Ideations, Suicidal Ideations Hematologic/ Lymphatic: Denies: Easy Bruising, Easy Bleeding VTE Information - Inpt Only VTE Present on Admission: No VTE Mechan Device Prophylaxis: None VTE Pharm Prophylaxis ordered?: Yes - Physical Exam Vitals/I&O's: Vital Signs Temp Pulse Resp BP Pulse Ox 97.3 F L 69 17 140/90 H 99 11/26/19 23:02 11/26/19 23:02 11/26/19 23:02 11/26/19 23:02 11/26/19 23:02 Oxygen Delivery Method Room Air Weight: 103.1 kg Body Mass Index (BMI) 35.6 General: Alert, Oriented x3, Cooperative HEENT: Atraumatic, PERRLA, EOMI, Normocephalic Neck: Supple, No JVD, Negative Carotid Bruits Lungs: Clear to auscultation, Normal air movement, No rhonchi, No wheeze, No rales Cardiovascular: Regular rate, Regular Rhythm, Normal S1, Normal S2, No murmurs Abdomen: Bowel Sounds Present, Soft, Non Tender Extremities: No edema, Capillary Refill Less than 3 Seconds Skin: - - Rounded area of lateral side of right leg with redness Musculoskeletal: No Muscle Wasting Neurological: Cranial nerves II-XII grossly intact Psych/Mental Status: Normal Affect, Appropriate Current Medications Vancomycin HCl 1,500 mg/ (Sodium Chloride) 530 mls @ 250 mls/hr IV X1 ONE Stop: 11/27/19 01:07 Sodium Chloride () 250 mls @ 15 mls/hr IV .[id number] PRN PRN Reason: Saline Flush Sodium Chloride () 250 mls @ 15 mls/hr IV .[id number] PRN PRN Reason: Additional IVPB Infusion Assessment/Plan All Active Problems (Last Reviewed 11/27/19 @ 01:[address] Taj Forrester MD) MRSA (methicillin resistant staph aureus) culture positive (Acute) MRSA (methicillin resistant Staphylococcus aureus) infection (Acute) Cellulitis (Acute) The patient is a 39 year old M with a significant history of MRSA infection of his right knee; hypertension; depression; hyperlipidemia and tobacco abuse who presents emergency department with a one-month history of right leg abscess and with a positive MRSA wound culture.; and history of MRSA of right knee. Abscess of right leg with surrounding cellulitis. Wound culture on 11/05/2019 was remarkable for MRSA. Also wound culture was obtained on 11/25/2019. Preliminary results is unremarkable. Received vancomycin and Zosyn at the emergency department. Continue patient on vancomycin. Review of records shows that CHANDRAKANT of vancomycin was 1. And CBC and CMP. Elevated liver enzymes Per labs on 11/26/2019 patient had elevated ALT and AST. With AST less than ALT. Also noted is a persistent elevation of alk phos. Cannot rule out fatty liver disease. In the meantime we will check acute hepatitis panel. Depression Celexa continued Hypertension Blood pressure was elevated on presentation Lisinopril and hydrochlorothiazide continued. Trend blood pressures and adjust blood pressure medication as necessary. Tobacco abuse Chews tobacco Counseled. DVT prophylaxis Subcutaneous Lovenox ordered. Inpatient E&M: [id number] Init Hosp L2
[2019-11-27 00:05] VITALS: BP 132/71; PULSE 71; RESP 15; TEMP 36.3; O2SAT 97
[2019-11-27 00:30] VITALS: BP 143/78; PULSE 63; RESP 15; TEMP 36.5; O2SAT 98
[2019-11-27 00:37] VITALS: BMI 35.6
[2019-11-27 00:39] VITALS: BMI 35.6
--- NOTE | 2019-11-27 00:50 | PCM.RX.CS ---
Consult Pharmacy has been consulted to manage selected antiobiotic: Vancomycin Type of Consult: New start Suspected Infection: Skin/Soft tissue Prior Doses of Antibiotics Received/Current Regimen: Medications Vancomycin HCl (Vancomycin) 1,000 mg in 200 mls @ 200 mls/hr IV Q12H PHIL Vancomycin HCl 1,500 mg/ (Sodium Chloride) 530 mls @ 250 mls/hr IV X1 ONE Stop: 11/27/19 01:07 Last Admin: 11/26/19 23:56 Dose: 250 mls/hr Weight used for dosin.1 kg Estimated Creatinine Clearance: 79 Goal Trough: 10-15 mcg/mL Pharmacy Plan for Drug Dosing: Pharmacy Service will continue to monitor and adjust dosing as required. Follow-Up Labs: Trough Vancomycin Labs to be done on [date and time ordered]: 11/28/19 @[id number]
[2019-11-27 01:15] VITALS: PULSE 64
[2019-11-27 07:01] LABS: Absolute Neutrophil Count 2.1 X10^3/uL (2.0-7.7); Basophil# 0.04 X10^3/uL; Basophil% 0.9 % (0-1); Eosinophil# 0.27 X10^3/uL; Eosinophils% 5.8 % (0-5); Hematocrit 42.8 % (40-54); Hemoglobin 14.7 g/dL (13.0-16.5); Mean Corp Hgb Conc 34.3 g/dL (32-36); Mean Corpuscular Hgb 30.4 pg (27.0-32.0); Mean Corpuscular Volume 88.6 fL (80-94); Mean Platelet Vol. 9.8 fl (6.2-12.0); Monocyte# 0.37 X10^3/uL; NRBC Flagged by Analyzer 0 % (0-5); Neutrophil # 2.13 X10^3/uL (2.7-7.7); Neutrophil % 46.1 % (47-70); Platelet Count 234 K/mm3 (150-450); RBC Distribution Width CV 11.8 % (11.6-14.6); RBC Distribution Width SD 38.1 fl (35.1-43.9); Red Blood Count 4.83 M/mm3 (4.6-6.2); White Blood Count 4.6 K/mm3 (4.4-11.0)
[2019-11-27 07:32] LABS: ALB/GLOB Ratio 1.2 RATIO (0.9-2.4); AST(SGOT) 43 U/L (15-37); Alanine Aminotransfer ALT/SGPT 95 U/L (16-61); Albumin, Serum 3.4 g/dL (3.2-5.0); Alkaline Phosphatase 111 U/L (45-117); Anion Gap 4 (5-15); BUN 14 mg/dL (7-18); BUN/Creat Ratio 13.2 RATIO (10-20); Calcium,Total 8.1 mg/dL (8.5-10.1); Chloride 106 mmol/L (98-107); Creatinine, Serum 1.06 mg/dL (0.70-1.30); EST Glomerular Filtration Rate 83 mL/min (>60); Est Glom Filt Rate - Afr Amer 100 mL/min (>60); Estimated Creatinine Clearance 87.48 ml/min; Globulin 2.9 g/dL (2.2-4.2); Glucose 102 mg/dL (74-106); Potassium 3.9 mmol/L (3.5-5.1); Protein, Total 6.3 g/dL (6.4-8.2); Sodium Level 138 mmol/L (136-145)
[2019-11-27 07:45] VITALS: BP 111/89; PULSE 70; RESP 16; TEMP 36.4; O2SAT 95
[2019-11-27 07:55] VITALS: O2SAT 95
--- NOTE | 2019-11-27 09:35 | PCM.HP.ID ---
Problem List (1) Cellulitis Status: Acute Qualifiers: Site of cellulitis: extremity Site of cellulitis of extremity: lower extremity Laterality: right Qualified Code(s): L03.115 - Cellulitis of right lower limb Reason for Consult: cellulitis Consulted by: Dr. Soler History of Present Illness: The patient is a 39 year old M with h/o MRSA RLE abscess in 2016, presented to ED 11/25 with over a month of R royal slowly progressive redness, induration. No inciting event, no pets at home. Thought it was a bug bite possibly. Initially had small pustule but never had any drainage other than tiny amounts of serous fluid. Never had tenderness, fever, purulence, night sweats. Saw urgent care, given doxy for a few days, cx came back with rare MRSA, put on 2 ten day courses of bactrim without any improvement. Referred to wound center, saw Dr. Sofia 11/24, cx sent, no purulence or organisms seen on gram stain. Started on clinda, took 6 doses, came to ED due to lack of improvement. Given vanc/zosyn initially here. Redness is somewhat improved from 11/24. Full ROS performed and neg except as noted above. No fam h/o skin cancer. - Medical History Past Medical History (Chronic Problems): Chronic Problems (Last Reviewed 11/27/19 @ 01:[address] Taj Forrester MD) Hypertension (Chronic) Hyperlipidemia (Chronic) Tobacco abuse (Chronic) Tobacco abuse counseling (Chronic) Lipoma of neck (Chronic) Depression (Chronic) Obesity (BMI 35.0-39.9 without comorbidity) (Chronic) Allergies/Adverse Reactions: Allergies No Known Allergies Allergy (Verified 11/26/19 21:35) Home Medications: Ambulatory Orders Medication Instructions Recorded Citalopram [Celexa] 40 mg PO DAILY 12/17/16 lisinopril 10 mg tablet 10 ea PO DAILY 11/05/19 Hydrochlorothiazide [Hctz] 25 mg PO DAILY 11/25/19 Rosuvastatin Calcium 5 mg PO DAILY 11/25/19 Clindamycin HCl 300 mg PO Q6H 11/26/19 - Social History Tobacco Use: cigarettes Vital Signs Temp Pulse Resp BP Pulse Ox 97.5 F L 70 16 111/89 H 95 11/27/19 07:45 11/27/19 07:45 11/27/19 07:45 11/27/19 07:45 11/27/19 07:55 Oxygen Delivery Method Room Air Weight: 103.1 kg Body Mass Index (BMI) 35.6 Laboratory Tests Past 24 Hrs 11/27/19 11/27/19 11/27/19 06:42 06:42 06:42 WBC 4.6 RBC 4.83 Hgb 14.7 Hct 42.8 MCV 88.6 MCH 30.4 MCHC 34.3 RDW Std Deviation 38.1 RDW Coeff of Lata 11.8 Plt Count 234 MPV 9.8 Immature Gran % (Auto) 0.200 Neut % (Auto) 46.1 L Lymph % (Auto) 39.0 [place] % (Auto) 8.0 Eos % (Auto) 5.8 H Baso % (Auto) 0.9 Absolute Neuts (auto) 2.1 Absolute Lymphs (auto) 1.80 Nucleated RBC % 0 Sodium 138 Potassium 3.9 Chloride 106 Carbon Dioxide 28.0 Anion Gap 4 L BUN 14 Creatinine 1.06 Estim Creat Clear Calc 87.48 Est GFR (MDRD) Af Amer 100 Est GFR (MDRD) Non-Af 83 BUN/Creatinine Ratio 13.2 Glucose 102 Calcium 8.1 L Total Bilirubin 0.70 AST 43 H ALT 95 H Alkaline Phosphatase 111 Total Protein 6.3 L Albumin 3.4 Globulin 2.9 Albumin/Globulin Ratio 1.2 Hepatitis A IgM Ab Pending Hep Bs Antigen Pending Hep B Core IgM Ab Pending Hepatitis C Ab (EIA) Pending - Other Studies Radiology: [] reviewed Other Studies: [] Route of nutrition/ use of supplements: [] Nutritional Intake: [] IV Site: [] Venegas Catheter: [] - Physical Exam General: Alert, Oriented x3, Cooperative, No apparent distress HEENT: Atraumatic, PERRLA, EOMI Neck: Supple, No Nodes Lungs: Clear to auscultation, Normal air movement Cardiovascular: Regular rate, Regular Rhythm, No murmurs Abdomen: Soft, Non Tender, Non-Distended Extremities: No edema Skin: - - R royal with area 4-5cm area of erythema, small central umbilication with some surrounding induration and a ring of crusting about that. Non tender, no drainage. Minimal dried serous fluid on dressing. - Assessment/Plan Antibiotics: [] Assessment/Plan: [] R royal cellulitis with MRSA (+) cx - most recent swab 11/24 is neg for any purulence or bacteria at this point. 11/02 (+) for mRSA, but denies any improvement with doxy or bactrim though it was a sensitive organism. Redness is not acting like a typical cellulitis or abscess given it's slow progression, lack of purulence, lack of pain, lack of improvement with po abx. No systemic symptoms. It does appear less red compared to 11/24. He may be benefiting from the strep coverage offered by the clinda that was missing with the doxy and bactrim. Recommend discharge home with wound care followup to complete course of po clinda. Will also add topical antifungal given the circular crusting. If he does not continue to improve, recommend skin biopsy. I gave him my card if he has any issues. Will follow as needed, thank you, d/w Dr. Soler.
[2019-11-27] MEDS: Citalopram 40 MG TABLET PO (09:56)
[2019-11-27] MEDS: Lisinopril 10 MG Tablet PO (09:56)
[2019-11-27] MEDS: hydroCHLOROthiazide 25 MG Tablet PO (09:56)
[2019-11-27] MEDS: Atorvastatin Calcium 10 MG Tablet PO (09:58)
--- NOTE | 2019-11-27 11:02 | PCM.DC ---
You will use the following diet at home:: Cardiac Your food should be the consistency of: Regular Your liquids should be the consistency of: Regular/Thin Discharge Activity: Return to Normal Activity Call your doctor if you observe: Fever of 101 or Higher, Uncontrolled pain Allergies/Adverse Reactions: Allergies No Known Allergies Allergy (Verified 11/26/19 21:35) Medications to take at Discharge Citalopram [Celexa] 40 mg PO DAILY 12/17/16 lisinopril 10 mg tablet 10 ea PO DAILY 11/05/19 Hydrochlorothiazide [Hctz] 25 mg PO DAILY 11/25/19 Rosuvastatin Calcium 5 mg PO DAILY 11/25/19 Clindamycin HCl 300 mg PO Q6H 11/26/19 Clotrimazole [Lotrimin] 1 applicatio TOPICAL BID 7 Days #1 tube 11/27/19 The following prescriptions were given: Clotrimazole [Lotrimin] 1 applicatio TOPICAL BID 7 Days #1 tube Transmission Status: Received by [facility]/pharmacy #[id number] Primary Care Physician: Too Townsend MD [Primary Care Provider] - Please follow up with your Primary Care Physician in: 1-2 weeks Test Results: Test results from this visit will be discussed in further detail at your follow-up appointment, if applicable. Please Follow Up With: Wound care center When: within 1 week Please Follow Up With: Ramirez Teran MD When: if no improvement Proposed Discharge Date: 11/27/19
--- NOTE | 2019-11-27 11:24 | PHA.DC.MR ---
Pharmacy Service has performed discharge medication reconciliation for this patient. The patient's discharge medication list was reviewed for discrepancies and discrepancies were resolved. Home Medications Citalopram [Celexa] 40 mg PO DAILY 12/17/16 lisinopril 10 mg tablet 10 ea PO DAILY 11/05/19 Hydrochlorothiazide [Hctz] 25 mg PO DAILY 11/25/19 Rosuvastatin Calcium 5 mg PO DAILY 11/25/19 Clindamycin HCl 300 mg PO Q6H 11/26/19 Clotrimazole [Lotrimin] 1 applicatio TOPICAL BID 7 Days #1 tube 11/27/19
--- NOTE | 2019-11-27 11:27 | CASEMGMT ---
Assessment- SW completed assessment with patient at his bedside. SW also confirmed addresses and phone numbers. Living situation- Patient lives with his and children in a ranch style home with a couple entry steps PCP: Dr Townsend Specialists: Dr Sofia for wound care at [facility] Pharmacy: [id number] in [place] DME: None ADL's/IADL's: Patient is independent in all adls and iadls. 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 Past SNF/rehab: None Past HH: None LW: No POA: No Plan: SW met with patient, introduced self and role at [facility]. Patient agreed with completing assessment. His addresses and phone numbers listed were correct. His insurance is [employer] and he has prescription coverage with [employer]. He has no discharge needs. 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
--- NOTE | 2019-11-27 14:16 | PCM.DC.SUM ---
Discharge Date and Diagnosis Date of Admission: 11/26/19 Date of Discharge: 11/27/19 - Primary Discharge Diagnosis Acute Problems: RLE abscess/cellulitis, MRSA with failed outpatient therapy. - Secondary Discharge Diagnosis Chronic Problems: Chronic Problems (Last Reviewed 11/27/19 @ 01:[address] Taj Forrester MD) Hypertension (Chronic) Hyperlipidemia (Chronic) Tobacco abuse (Chronic) Tobacco abuse counseling (Chronic) Lipoma of neck (Chronic) Depression (Chronic) Obesity (BMI 35.0-39.9 without comorbidity) (Chronic) Hospital Course and Treatment Operations: None Procedures: None Summary of Care Provided: Hospital course: The patient is a 39 year old M with pmhx of HTN, HLD, who presented to the ER with c/o a right lower extremity wound that had increased drainage (yellow). This had been present for about 1 month. He was seeing the wound care center and had cultures showing MRSA. Most recent culture shows no growth. He had taken doxy, bactrim, and most recently clindamycin was started for this yet his problem persisted. He did not have fever or leukocytosis and did not appear septic. He was admitted and placed on vancomysin. He was seen by ID who recommended completing the oral clinda and using a topical antifungal. He will need follow up with the wound care center. If this does not improve after this round of antibiotics he will likely need a biopsy. He was discharged home in stable condition. He has follow up with the wound care center within a week. He will need to follow up with his PCP in 1-2 weeks. He can follow up with infectious disease if he has no improvement with abx. This patient was seen by Grabiel Montiel PA-C under the supervision of Doctor Soler. [] - Physical Exam Vitals/I&O's: Vital Signs Temp Pulse Resp BP Pulse Ox 97.5 F L 70 16 111/89 H 95 11/27/19 07:45 11/27/19 07:45 11/27/19 07:45 11/27/19 07:45 11/27/19 07:55 Oxygen Delivery Method Room Air Weight: 227 lb 4.745 oz Body Mass Index (BMI) 35.6 Intake and Output for Last 24 Hours 11/25/19 11/26/19 11/27/19 23:59 23:59 23:59 Intake Total 1050 / 1050 530 / 530 Balance 1050 / 1050 530 / 530 General: Alert, Oriented x3, Cooperative HEENT: Atraumatic, PERRLA, EOMI, Normocephalic Neck: Supple, No JVD, Negative Carotid Bruits Lungs: Clear to auscultation, Normal air movement Cardiovascular: Regular rate, No murmurs Abdomen: Bowel Sounds Present, Soft, Non Tender Extremities: No edema, Capillary Refill Less than 3 Seconds Skin: No rashes, No breakdown Musculoskeletal: No Tenderness to Palpation of Joints or Extremities Neurological: Cranial nerves II-XII grossly intact Psych/Mental Status: Normal Affect, Appropriate, Alert and oriented to time, place, person, mood and affect Laboratory Results 11/27/19 06:42: Hepatitis A IgM Ab Pending, Hep Bs Antigen Pending, Hep B Core IgM Ab Pending, Hepatitis C Ab (EIA) Pending 11/27/19 06:42: WBC 4.6, RBC 4.83, Hgb 14.7, Hct 42.8, MCV 88.6, MCH 30.4, MCHC 34.3, RDW Std Deviation 38.1, RDW Coeff of Lata 11.8, Plt Count 234, MPV 9.8, Immature Gran % (Auto) 0.200, Neut % (Auto) 46.1 L, Lymph % (Auto) 39.0, [place] % (Auto) 8.0, Eos % (Auto) 5.8 H, Baso % (Auto) 0.9, Absolute Neuts (auto) 2.1, Absolute Lymphs (auto) 1.80, Nucleated RBC % 0 11/27/19 06:42: Sodium 138, Potassium 3.9, Chloride 106, Carbon Dioxide 28.0, Anion Gap 4 L, BUN 14, Creatinine 1.06, Estim Creat Clear Calc 87.48, Est GFR (MDRD) Af Amer 100, Est GFR (MDRD) Non-Af 83, BUN/Creatinine Ratio 13.2, Glucose 102, Calcium 8.1 L, Total Bilirubin 0.70, AST 43 H, ALT 95 H, Alkaline Phosphatase 111, Total Protein 6.3 L, Albumin 3.4, Globulin 2.9, Albumin/Globulin Ratio 1.2 Discharge Diet: Low fat/ Low Cholesterol, 2000 mg Sodium Diet Discharge Activity: Return to Normal Activity Call your doctor if you observe: Fever of 101 or Higher, Uncontrolled pain Home Medications: Medications to take at Discharge Citalopram [Celexa] 40 mg PO DAILY 12/17/16 lisinopril 10 mg tablet 10 ea PO DAILY 11/05/19 Hydrochlorothiazide [Hctz] 25 mg PO DAILY 11/25/19 Rosuvastatin Calcium 5 mg PO DAILY 11/25/19 Clindamycin HCl 300 mg PO Q6H 11/26/19 Clotrimazole [Lotrimin] 1 applicatio TOPICAL BID 7 Days #1 tube 11/27/19 Following Prescriptions Were Given to Patient: Clotrimazole [Lotrimin] 1 applicatio TOPICAL BID 7 Days #1 tube Transmission Status: Received by [facility]/pharmacy #[id number] Primary Care Physician: Too Townsend MD [Primary Care Provider] - Please follow up with your Primary Care Physician in: 1-2 weeks Please Follow Up With: Wound care center When: within 1 week Please Follow Up With: Ramirez Teran MD When: if no improvement Disposition: Home Minutes spent on discharge:: 35 Patient Condition:: Stable Medical Necessity - Tobacco Use Smoking Status: Current every day smoker Tobacco Use: Chew Meaningful Use Info Meaningful Use Diagnoses (Choose all that apply): None applicable
[2019-11-28 04:07] LABS: HEPATITIS B SURFACE AG Negative (Negative); Hepatitis A IgM Antibody Negative (Negative); Hepatitis B Core AB IgM Negative (Negative)
[2019-11-28 04:41] LABS: Hep C Antibodies 0.1 s/co ratio (0.0-0.9)
== END 2019-11-27 12:14 | disposition home or self-care (01) ==
LOC: ED 23:22 → PCU 11-27 00:11
PROVIDERS: Admitting Provider Hospitalist; Emergency Provider Emergency Medicine; PCP Family Medicine; Visit Provider Internal Medicine
DX: L02.415 Cutaneous abscess of right lower limb (principal); L03.115 Cellulitis of right lower limb; B95.62 Methicillin resistant Staphylococcus aureus infection as the cause of diseases classified elsewhere; I10 Essential (primary) hypertension; F32.9 Major depressive disorder, single episode, unspecified; E78.5 Hyperlipidemia, unspecified; E66.9 Obesity, unspecified; F17.220 Nicotine dependence, chewing tobacco, uncomplicated; Z68.35 Body mass index [BMI] 35.0-35.9, adult; Z79.899 Other long term (current) drug therapy
CPT/HCPCS: 36415; 80053; 80074; 85025; 87040; 96365; 96366; 96367; 99218; 99284; J7030; J7040; J7050; A4216; G0378

== ENCOUNTER → 2019-11-26 | Outpatient (CLI) | payer BC, SELFPAY ==
[2019-11-25 09:05] VITALS: BMI 34.4
[2019-11-26 07:32] LABS: Erythrocyte Sedimentation Rate < 1 mm/hr (0-15)
[2019-11-26 07:36] LABS: Absolute Lymphocyte Count 2.16 X10^3/uL (0.83-4.51); Basophil# 0.06 X10^3/uL; Basophil% 1.2 % (0-1); Eosinophil# 0.27 X10^3/uL; Eosinophils% 5.3 % (0-5); Hematocrit 45.5 % (40-54); Hemoglobin 15.7 g/dL (13.0-16.5); Lymphocyte # 2.16 X10^3/ul (4.0); Lymphocyte % 42.4 % (19-41); Mean Corp Hgb Conc 34.5 g/dL (32-36); Mean Corpuscular Hgb 30.6 pg (27.0-32.0); Mean Corpuscular Volume 88.7 fL (80-94); Mean Platelet Vol. 9.5 fl (6.2-12.0); Monocyte# 0.56 X10^3/uL; NRBC Flagged by Analyzer 0 % (0-5); Neutrophil # 2.04 X10^3/uL (2.7-7.7); Neutrophil % 39.9 % (47-70); Platelet Count 267 K/mm3 (150-450); RBC Distribution Width CV 11.6 % (11.6-14.6); RBC Distribution Width SD 37.3 fl (35.1-43.9); Red Blood Count 5.13 M/mm3 (4.6-6.2); White Blood Count 5.1 K/mm3 (4.4-11.0)
[2019-11-26 07:39] LABS: ALB/GLOB Ratio 1.2 RATIO (0.9-2.4); AST(SGOT) 78 U/L (15-37); Alanine Aminotransfer ALT/SGPT 124 U/L (16-61); Alkaline Phosphatase 134 U/L (45-117); Anion Gap 4 (5-15); BUN 17 mg/dL (7-18); BUN/Creat Ratio 13.5 RATIO (10-20); Calcium,Total 8.5 mg/dL (8.5-10.1); Chloride 102 mmol/L (98-107); Creatinine, Serum 1.26 mg/dL (0.70-1.30); EST Glomerular Filtration Rate 68 mL/min (>60); Est Glom Filt Rate - Afr Amer 82 mL/min (>60); Globulin 3.2 g/dL (2.2-4.2); Glucose 111 mg/dL (74-106); Potassium 3.9 mmol/L (3.5-5.1); Prealbumin 33.4 mg/dL (20.0-40.0); Protein, Total 7.2 g/dL (6.4-8.2); Sodium Level 136 mmol/L (136-145)
== END | disposition home or self-care (01) ==
LOC: LAB 06:45
PROVIDERS: PCP Family Medicine; Referring Provider Surgery; Visit Provider Surgery
DX: T14.8XXA Other injury of unspecified body region, initial encounter (principal)
CPT/HCPCS: 36415; 80053; 84134; 85025; 85652

== ENCOUNTER 2019-12-09 09:00 | Outpatient (RCR) | payer BC, SELFPAY ==
[2019-11-27 00:51] VITALS: BP 140/76; PULSE 89; RESP 18; TEMP 36.7
[2019-12-02 09:11] VITALS: BP 146/68; PULSE 87; RESP 20; TEMP 36.5; BMI 35.6
--- NOTE | 2019-12-02 09:33 | HP.PCM_ITS ---
(1) Hypertension Status: Chronic Current Visit: No Code(s): I10 - Essential (primary) hypertension (2) Hyperlipidemia Status: Chronic Current Visit: No Code(s): E78.5 - Hyperlipidemia, unspecified (3) Tobacco abuse Status: Chronic Current Visit: Yes Code(s): Z72.0 - Tobacco use (4) Tobacco abuse counseling Status: Chronic Current Visit: Yes Code(s): Z71.6 - Tobacco abuse counseling (5) MRSA (methicillin resistant staph aureus) culture positive Status: Acute Current Visit: Yes Code(s): Z22.322 - Carrier or suspected carrier of Methicillin resistant Staphylococcus aureus (6) MRSA (methicillin resistant Staphylococcus aureus) infection Status: Acute Current Visit: Yes Code(s): A49.02 - Methicillin resistant Staphylococcus aureus infection, unspecified site (7) Lipoma of neck Status: Chronic Current Visit: No Code(s): D17.0 - Benign lipomatous neoplasm of skin and subcutaneous tissue of head, face and neck (8) Foreign body hand-infection Status: Inactive Current Visit: No Qualifiers: Code(s): S60.559A - Superficial foreign body of unspecified hand, initial encounter; L08.9 - Local infection of the skin and subcutaneous tissue, unspecified (9) Depression Status: Chronic Current Visit: No Qualifiers: Code(s): F32.9 - Major depressive disorder, single episode, unspecified (10) Obesity (BMI 35.0-39.9 without comorbidity) Status: Chronic Current Visit: No Code(s): E66.9 - Obesity, unspecified (11) Cellulitis Status: Acute Current Visit: Yes Qualifiers: Site of cellulitis: extremity Site of cellulitis of extremity: lower extremity Laterality: right Qualified Code(s): L03.115 - Cellulitis of right lower limb Code(s): L03.90 - Cellulitis, unspecified History of Present Illness Date of Service: 12/02/19 Chief Complaint: MRSA wound infection, right leg History of Wound: This is a 39-year-old male who presented with a MRSA wound infection of the right lateral calf. On or about October 28, 2019, the patient believes that he was bitten by an insect on the right lateral calf. Over the next few days, it became increasingly more painful and reddened, and he presented to the urgent care center for evaluation on November 05, 2019. The patient was treated with a prescription for doxycycline, and cultures were obtained. The cultures subsequently were positive for MRSA. The patient was treated with a prescription for Bactrim, and again presented to the urgent care facility on November 17, 2019, where a second prescription for Bactrim was issued. The patient remains on Bactrim at this time. He continued to have pain and redness at the site, as well as itching. There was only a minor amount of drainage. The wound has failed to heal. He has been using Neosporin topically. Interestingly, the patient has a history of a MRSA infection of the right lower extremity in 2018, for which he acquired inpatient hospitalization. Past Medical History Past Medical History: Chronic Problems (Last Reviewed 11/27/19 @ 01:[address] Taj Forrester MD) Hypertension (Chronic) Hyperlipidemia (Chronic) Tobacco abuse (Chronic) Tobacco abuse counseling (Chronic) Lipoma of neck (Chronic) Depression (Chronic) Obesity (BMI 35.0-39.9 without comorbidity) (Chronic) Surgical History: - - The patient has undergone surgery on the right hand due to impalement with a wooden fragment. Allergies/Adverse Reactions: Allergies No Known Allergies Allergy (Verified 11/26/19 21:35) Home Medications: Ambulatory Orders Medication Instructions Recorded Citalopram [Celexa] 40 mg PO DAILY 12/17/16 lisinopril 10 mg tablet 10 ea PO DAILY 11/05/19 Hydrochlorothiazide [Hctz] 25 mg PO DAILY 11/25/19 Rosuvastatin Calcium 5 mg PO DAILY 11/25/19 Clindamycin HCl 300 mg PO Q6H 11/26/19 Clotrimazole [Lotrimin] 1 applicatio TOPICAL BID 7 Days #1 11/27/19 tube - Family History Maternal - - The patient was estranged from his mother, and does not know her health history. Paternal - - Patient's father at the age of 52 from complications of alcoholism Smoking Status: Current every day smoker Tobacco Use: Chew Review of Systems Constitutional: Denies: Chills, Fever, Weight Change Eyes: Denies: Pain, Vision Change HEENT: Denies: Difficulty Hearing, Difficulty Swallowing, Sinus Congestion Cardiovascular: Denies: Chest Pain, Palpitations Respiratory: Denies: Cough, Shortness of Breath Gastrointestinal: Denies: Diarrhea, Nausea, Vomiting Genitourinary: Denies: Dysuria, Hematuria Endocrine: Denies: Heat/ Cold Intolerance, Polydipsia, Polyuria Hematologic/ Lymphatic: Denies: Easy Bruising, Easy Bleeding - Physical Exam Vital Signs Temp Pulse Resp BP 97.7 F L 87 20 H 146/68 H 12/02/19 09:11 12/02/19 09:11 12/02/19 09:11 12/02/19 09:11 General: Alert, Oriented x3, Cooperative, No apparent distress, Well developed, Well nourished HEENT: Atraumatic, PERRLA, EOMI, Normocephalic Oral: Moist Mucosa Neck: No JVD Lungs: Normal air movement Abdomen: Non-Distended Extremities: No clubbing, No cyanosis, No edema, No Calf Tenderness, - - No significant swelling or edema are noted in the patient's right lower extremity. The wound on the right lateral calf appears essentially healed. There is no significant erythema or redness. There is no obvious infection or cellulitis. There has been marked improvement. Wound Measurements and Assessment WC - Nurse 1 - General Ulcer Measurement Start: 12/02/19 09:08 Freq: Status: Active Protocol: Activity Type Activity Date Activity User E-Sign Co-Sign Detail Recorded Client Recorded Date Recorded By Document 12/02/19 09:11 [id number] 12/02/19 09:15 DL 12/02/19 09:11 Wound Center Nurse 1 [Ulcer Assessment] #1 RLE Lat -Current Size (cm) - Length 0.2 -Current Size (cm) - Width 0.2 -Current Size (cm) - Depth 0.1 -Total Square Cm 0.04 -Photo Taken No -Exudate Amt None Present -Wound Margin Flat & Intact -Granulation Amt Small (1-33%) -Granulation Quality [place] -Necrosis Amt None Present (0 %) -Texture (Tamra-wound Skin Appearance) Scarring,Rash -Moisture (Tamra-wound Skin Appearance No Abnormality ) -Color (Tamra-wound Skin Appearance) No Abnormality -Temperature (Tamra-wound Skin No Abnormality Appearance) (Pt Warm) -Tenderness on Palpation (Tamra-wound No Skin Appearance) -Ulcer Cleansing Rinsed/ Irrigated with Saline -Foul Odor after Cleansing No -Anesthetic Used 4% Lidocaine Solution Musculoskeletal: No Muscle Wasting Neurological: Cranial nerves II-XII grossly intact, Neuro grossly intact Psych/Mental Status: Normal Affect, Appropriate, Alert and oriented to time, place, person, mood and affect Debridement Note No debridement was completed today - The wound appears essentially healed and epithelialized. Assessment/Plan Active Problems (Last Reviewed 11/27/19 @ 01:[address] Taj Forrester MD) Tobacco abuse (Chronic) Tobacco abuse counseling (Chronic) MRSA (methicillin resistant staph aureus) culture positive (Acute) MRSA (methicillin resistant Staphylococcus aureus) infection (Acute) Cellulitis (Acute) Assessment: This is a generally healthy and active 39-year-old male who pre sented with a nonhealing wound on the right lateral calf, suspected to have its origin as an insect bite. It became infected, and MRSA was cultured. The patient has been treated with a prescription for doxycycline, as well as 2 courses of oral Bactrim. He has been using Neosporin ointment topically. Despite these treatment measures, the patient's wound failed to heal, and signs of infection persisted. Cultures were obtained on the patient's initial presentation, by swab, for both aerobic and anaerobic growth. Cultures were negative. The patient has previously been treated for a MRSA infection of the right lower extremity in the past, arousing suspicion for possible nasal colonization. Following the patient's initial visit at our wound healing facility, he presented to the emergency department the following day. He was admitted as an inpatient for 24 hours, where he received courses of intravenous antibiotics. However, he was subsequently discharged with instructions to follow the measures implemented at his initial visit at our facility. The patient has been using mupirocin intranasally and topically on the infected site on the right lateral calf. He remains on clindamycin 300 mg p.o. every 6 hours, which was prescribed 1 week ago at his visit here. Plan: We are to continue clindamycin 300 mg p.o. every 6 hours for a total of 10 days. Additionally, Bactroban 2% cream has been prescribed for intranasal use, and will also be used topically on the site of the infected wound on the right lateral calf. Cultures have been obtained of the patient's right lateral calf wound, the results of which were negative. A noninvasive lower extremity arterial study is not felt to be needed, given the patient's young age, and the fact that he does not smoke cigarettes. The patient is to return in 1 week. He has been instructed to seek medical attention should the erythema/cellulitic changes worsen to a significant degree. The patient stands 5 feet 7 inches tall. He weighs 220 pounds. His BMI is 34.4. This places him in an obese class I category. Weight optimization has been recommended. The patient has been advised to stop his tobacco habit. Influenza vaccine was not administered today.
[2019-12-09 09:03] VITALS: BP 140/81; PULSE 70; RESP 16; TEMP 36.3; BMI 35.6
--- NOTE | 2019-12-09 12:49 | PCM.WC.HP ---
(1) Hypertension Status: Chronic Code(s): I10 - Essential (primary) hypertension (2) Hyperlipidemia Status: Chronic Code(s): E78.5 - Hyperlipidemia, unspecified (3) Tobacco abuse Status: Chronic Code(s): Z72.0 - Tobacco use (4) Tobacco abuse counseling Status: Chronic Code(s): Z71.6 - Tobacco abuse counseling (5) MRSA (methicillin resistant staph aureus) culture positive Status: Acute Code(s): Z22.322 - Carrier or suspected carrier of Methicillin resistant Staphylococcus aureus (6) MRSA (methicillin resistant Staphylococcus aureus) infection Status: Acute Code(s): A49.02 - Methicillin resistant Staphylococcus aureus infection, unspecified site (7) Lipoma of neck Status: Chronic Code(s): D17.0 - Benign lipomatous neoplasm of skin and subcutaneous tissue of head, face and neck (8) Depression Status: Chronic Qualifiers: Code(s): F32.9 - Major depressive disorder, single episode, unspecified (9) Obesity (BMI 35.0-39.9 without comorbidity) Status: Chronic Code(s): E66.9 - Obesity, unspecified (10) Cellulitis Status: Acute Qualifiers: Site of cellulitis: extremity Site of cellulitis of extremity: lower extremity Laterality: right Qualified Code(s): L03.115 - Cellulitis of right lower limb Code(s): L03.90 - Cellulitis, unspecified History of Present Illness Date of Service: 12/09/19 Chief Complaint: MRSA wound infection, right leg History of Wound: This is a 39-year-old male who presented with a MRSA wound infection of the right lateral calf. On or about October 28, 2019, the patient believes that he was bitten by an insect on the right lateral calf. Over the next few days, it became increasingly more painful and reddened, and he presented to the urgent care center for evaluation on November 05, 2019. The patient was treated with a prescription for doxycycline, and cultures were obtained. The cultures subsequently were positive for MRSA. The patient was treated with a prescription for Bactrim, and again presented to the urgent care facility on November 17, 2019, where a second prescription for Bactrim was issued. The patient remains on Bactrim at this time. He continued to have pain and redness at the site, as well as itching. There was only a minor amount of drainage. The wound has failed to heal. He has been using Neosporin topically. Interestingly, the patient has a history of a MRSA infection of the right lower extremity in 2018, for which he acquired inpatient hospitalization. Past Medical History Past Medical History: Chronic Problems (Last Reviewed 11/27/19 @ 01:[address] Taj Forrester MD) Hypertension (Chronic) Hyperlipidemia (Chronic) Tobacco abuse (Chronic) Tobacco abuse counseling (Chronic) Lipoma of neck (Chronic) Depression (Chronic) Obesity (BMI 35.0-39.9 without comorbidity) (Chronic) Surgical History: - - The patient has undergone surgery on the right hand due to impalement with a wooden fragment. Allergies/Adverse Reactions: Allergies No Known Allergies Allergy (Verified 11/26/19 21:35) Home Medications: Ambulatory Orders Medication Instructions Recorded Citalopram [Celexa] 40 mg PO DAILY 12/17/16 lisinopril 10 mg tablet 10 ea PO DAILY 11/05/19 Hydrochlorothiazide [Hctz] 25 mg PO DAILY 11/25/19 Rosuvastatin Calcium 5 mg PO DAILY 11/25/19 Clindamycin HCl 300 mg PO Q6H 11/26/19 - Family History Maternal - - The patient was estranged from his mother, and does not know her health history. Paternal - - Patient's father at the age of 52 from complications of alcoholism Smoking Status: Current every day smoker Tobacco Use: Chew Review of Systems Constitutional: Denies: Chills, Fever, Weight Change Eyes: Denies: Pain, Vision Change HEENT: Denies: Difficulty Hearing, Difficulty Swallowing, Sinus Congestion Cardiovascular: Denies: Chest Pain, Palpitations Respiratory: Denies: Cough, Shortness of Breath Gastrointestinal: Denies: Diarrhea, Nausea, Vomiting Genitourinary: Denies: Dysuria, Hematuria Endocrine: Denies: Heat/ Cold Intolerance, Polydipsia, Polyuria Hematologic/ Lymphatic: Denies: Easy Bruising, Easy Bleeding - Physical Exam Vital Signs Temp Pulse Resp BP 97.3 F L 70 16 140/81 H 12/09/19 09:03 12/09/19 09:03 12/09/19 09:03 12/09/19 09:03 General: Alert, Oriented x3, Cooperative, No apparent distress, Well developed, Well nourished HEENT: Atraumatic, PERRLA, EOMI, Normocephalic Oral: Moist Mucosa Neck: No JVD Lungs: Normal air movement Abdomen: Non-Distended Extremities: No clubbing, No cyanosis, No edema, No Calf Tenderness, - - Inspection of the patient's right lower extremity reveals his right leg wound to be completely healed and epithelialized. There is no evidence of cellulitis or active infection. Skin: No rashes, No breakdown Wound Measurements and Assessment WC - Nurse 1 - General Ulcer Measurement Start: 12/02/19 09:08 Freq: Status: Active Protocol: Activity Type Activity Date Activity User E-Sign Co-Sign Detail Recorded Client Recorded Date Recorded By Document 12/09/19 09:03 [facility] [id number] 12/09/19 09:06 [facility] 12/09/19 09:03 Wound Center Nurse 1 [Ulcer Assessment] #1 RLE Lat -Combined with other wound No -Current Size (cm) - Length 0.1 -Current Size (cm) - Width 0.1 -Current Size (cm) - Depth 0.1 -Total Square Cm 0.01 -Epithelialization Large 67-100% -Texture (Tamra-wound Skin Appearance) Assessed, Scarring -Moisture (Tamra-wound Skin Appearance Assessed ) -Color (Tamra-wound Skin Appearance) Assessed -Temperature (Tamra-wound Skin No Abnormality Appearance) (Pt Warm) -Tenderness on Palpation (Tamra-wound No Skin Appearance) -Ulcer Cleansing Rinsed/ Irrigated with Saline -Foul Odor after Cleansing No -Anesthetic Used 5% Lidocaine Gel WC - Nurse 2 - General Ulcer CM Notes Start: 12/02/19 09:08 Freq: Status: Active Protocol: Activity Type Activity Date Activity User E-Sign Co-Sign Detail Recorded Client Recorded Date Recorded By Document 12/09/19 12:13 PL [id number] 12/09/19 12:14 PL 12/09/19 12:13 Wound Center Nurse 2 [Procedure/Treatment] -Procedure Performed No [See Physician Procedure note for Specifics] Pain Scale: 0-10 Numeric [Pain] -Is Patient Pain Free? Yes WC - Nurse 3 - General Ulcer D/C NN Start: 12/02/19 09:08 Freq: Status: Active Protocol: Activity Type Activity Date Activity User E-Sign Co-Sign Detail Recorded Client Recorded Date Recorded By Document 12/09/19 09:37 [facility] [id number] 12/09/19 09:38 [facility] 12/09/19 09:37 Wound Care Nurse 3 [Wound Dressing] #1 RLE Lat -Ulcer Cleansing Rinsed/ Irrigated with Saline -Foul Odor after Cleansing No -Primary Dressing Covered/Secured Dry Gauze & with Roll Gauze, Secured with Tape Vital Signs [Comments] -Comment no debridement today. healed Pain Scale: 0-10 Numeric [Pain] -Is Patient Pain Free? Yes - Visit Discharge [Visit Discharge Information] -Discharge Condition Stable -Ambulatory Status Ambulatory -Transportation Private Auto -Accompanied by Musculoskeletal: No Muscle Wasting Neurological: Cranial nerves II-XII grossly intact, Neuro grossly intact Psych/Mental Status: Normal Affect, Appropriate, Alert and oriented to time, place, person, mood and affect Debridement Note Post-Debridement Measurements/Treatment - Nurse 2 - General Ulcer CM Notes Start: 12/02/19 09:08 Freq: Status: Active Protocol: Activity Type Activity Date Activity User E-Sign Co-Sign Detail Recorded Client Recorded Date Recorded By Document 12/02/19 18:07 PL [id number] 12/02/19 18:08 Document 12/09/19 12:13 PL [id number] 12/09/19 12:14 PL 12/02/19 12/09/19 18:07 12:13 Wound Center Nurse 2 #1 RLE Lat -Procedure Performed No No -Wound/Ulcer Outcome Not Healed Pain Scale: 0-10 Numeric Is Patient Pain Free? Yes Yes - Nurse 3 - General Ulcer D/C NN Start: 12/02/19 09:08 Freq: Status: Active Protocol: Activity Type Activity Date Activity User E-Sign Co-Sign Detail Recorded Client Recorded Date Recorded By Document 12/02/19 09:33 [facility] [id number] 12/02/19 09:33 [facility] Document 12/09/19 09:37 [facility] [id number] 12/09/19 09:38 [facility] 12/02/19 12/09/19 09:33 09:37 Wound Care Nurse 3 #1 RLE Lat -Ulcer Cleansing Rinsed/ Rinsed/ Irrigated with Irrigated with Saline Saline -Foul Odor after Cleansing No No -Primary Dressing Applied Other -Other Dressing bactroban -Primary Dressing Covered/Secured with Dry Gauze, Dry Gauze & Secured with Roll Gauze, Tape Secured with Tape Treatment Response Procedure Tolerated Well Vital Signs Comment no debridement. no debridement no post vs today. healed Pain Scale: 0-10 Numeric Is Patient Pain Free? Yes Yes WC - Visit Discharge Discharge Condition Stable Stable Ambulatory Status Ambulatory Ambulatory Transportation Private Auto Private Auto Accompanied by No debridement was completed today - There are no open wounds or ulcerations Assessment/Plan Assessment: This is a generally healthy and active 39-year-old male who presented with a nonhealing wound on the right lateral calf, suspected to have its origin as an insect bite. It became infected, and MRSA was cultured. The patient had been treated with a prescription for doxycycline, as well as 2 courses of oral Bactrim. He had been using Neosporin ointment topically. Despite these treatment measures, the patient's wound failed to heal, and signs of infection persisted. Cultures were obtained on the patient's initial presentation, by swab, for both aerobic and anaerobic growth. Cultures were negative. The patient had previously been treated for a MRSA infection of the right lower extremity in the past, arousing suspicion for possible nasal colonization. Following the patient's initial visit at our wound healing facility, he presented to the emergency department the following day. He was admitted as an inpatient for 24 hours, where he received courses of intravenous antibiotics. However, he was subsequently discharged with instructions to follow the measures implemented at his initial visit at our facility. The patient has been using mupirocin intranasally and topically on the infected site on the right lateral calf. He has completed a course of clindamycin 300 mg p.o. every 6 hours. Recent laboratory studies have been reviewed, with results as follows: White blood count 5.1, hemoglobin 15.7, hematocrit 45.5, platelets 267,000, sed rate <1, glucose 111, BUN 17, creatinine 1.26, sodium 136, potassium 3.9, chloride 102, serum prealbumin 33.4, total protein 7.2, albumin 4.0, calcium 8.5. Plan: The right lower extremity wound is now completely healed and epithelialized. The erythema and cellulitic changes have resolved. The patient is to be discharged. He will follow-up henceforth on an as-needed basis. The patient and his , at the bedside, question what should be the response if the erythema and signs of cellulitis return. They have been advised to seek medical attention either with their primary care physician, or to present to the emergency department at a nearby hospital. Ultimately, in light of the patient's history of recurrent MRSA infections, there is concern as to the ultimate source of these recurring infections. The patient has been treated by means of intranasal mupirocin. As discussed with the patient and his , however, his may, in fact, be a carrier. Should cellulitis recur, a more dedicated investigation of the infectious source may be warranted. A recurrence of cellulitis would be an indication for involvement of an Infectious Disease specialist, such as Dr. Teran, who has recently been involved in the patient's care. The patient stands 5 feet 7 inches tall. He weighs 220 pounds. His BMI is 34.4. This places him in an obese class I category. Weight optimization has been recommended. The patient has been advised to stop his tobacco habit. Influenza vaccine was not administered today.
== END 2019-12-16 11:21 | disposition home or self-care (01) ==
LOC: WC 09:00
PROVIDERS: PCP Family Medicine; Referring Provider Physician Assistant; Visit Provider Surgery
DX: S80.861A Insect bite (nonvenomous), right lower leg, initial encounter (principal); W57.XXXA Bitten or stung by nonvenomous insect and other nonvenomous arthropods, initial encounter; Z86.14 Personal history of Methicillin resistant Staphylococcus aureus infection; I10 Essential (primary) hypertension; E66.9 Obesity, unspecified; E78.5 Hyperlipidemia, unspecified; F17.220 Nicotine dependence, chewing tobacco, uncomplicated; Z68.34 Body mass index [BMI] 34.0-34.9, adult
CPT/HCPCS: 11042; 99212; G0463

== ENCOUNTER → 2021-07-29 | Outpatient (CLI) | payer BC, SELFPAY ==
[2021-07-29 10:31] LABS: Anion Gap 7 (5-15); BUN 17 mg/dL (7-18); BUN/Creat Ratio 15.2 RATIO (10-20); Calcium,Total 9.1 mg/dL (8.5-10.1); Chloride 101 mmol/L (98-107); Cholesterol 218 mg/dL (200); Creatinine, Serum 1.12 mg/dL (0.70-1.30); EST Glomerular Filtration Rate 77 mL/min (>60); Est Glom Filt Rate - Afr Amer 93 mL/min (>60); Glucose 111 mg/dL (74-106); High Density Lipoprotein 39 mg/dL; Potassium 3.9 mmol/L (3.5-5.1); Sodium Level 137 mmol/L (136-145); Triglycerides 133 mg/dL; Very Low Density Lipoprotein 27 mg/dL (5-40)
== END | disposition home or self-care (01) ==
LOC: MTLAB 08:23
PROVIDERS: PCP Family Medicine; Referring Provider Family Medicine; Visit Provider Family Medicine
DX: I10 Essential (primary) hypertension (principal)
CPT/HCPCS: 36415; 80048; 80061

== ENCOUNTER → 2021-08-02 | Outpatient (CLI) | payer BC, SELFPAY ==
[2021-08-02 14:43] LABS: Chlamydia Trachomatis by PCR Negative (Negative); Neisserai gonorrhoeae by PCR Negative (Negative); Probe Check PASS; Sample Adequacy Control PASS; Specimen Processing Control PASS
== END | disposition home or self-care (01) ==
LOC: LABSPEC 10:35
PROVIDERS: PCP Family Medicine; Visit Provider Physician Assistant Surgical
DX: Z20.2 Contact with and (suspected) exposure to infections with a predominantly sexual mode of transmission (principal)
CPT/HCPCS: 87491; 87591

== ENCOUNTER → 2022-05-11 | Outpatient (CLI) | payer BC, SELFPAY ==
--- NOTE | 2022-05-11 19:02 | US_ITS ---
STUDY: SCROTUM ULTRASOUND REASON FOR EXAM: Male, 41 years old. SCROTAL MASS- LT INFERIOR TECHNIQUE: Ultrasound evaluation of the scrotum was performed with color Doppler and static veloz-scale imaging. COMPARISON: None. FINDINGS: RIGHT TESTICLE INTRATESTICULAR: There is a normal size of the right testicle. The right testicle measures 4.4 x 2.8 x 2.2 cm. There is a homogenous echotexture. There is normal arterial and normal venous vascularity. There is no demonstrated right testicular mass or cyst. EXTRATESTICULAR: The epididymis is normal in size. The epididymis head measures 1.2 cm. There is normal vascularity of the epididymis. There is a 5 mm epididymal cyst. There is a small hydrocele. There are prominent extratesticular veins consistent with a varicocele. There is no demonstrated extratesticular mass or cyst. LEFT TESTICLE INTRATESTICULAR: There is a normal size of the left testicle. The left testicle measures 4.4 x 2.7 x 1.9 cm. There is a homogenous echotexture. There is normal arterial and normal venous vascularity. There is no demonstrated left testicular mass or cyst. EXTRATESTICULAR: The epididymis is enlarged. The epididymis head measures 1.3 cm. There is normal vascularity of the epididymis. There is a 0.4 cm epididymal cyst. There is a small hydrocele. There are prominent extratesticular veins consistent with a varicocele. Inferior to the left testicle, at the site of the palpable lump is enlarged epididymis tail and a varicocele. US/Testicular with Arterial Flow IMPRESSION: Normal bilateral testicles with no sonographic evidence of intratesticular mass or torsion. There is an enlarged and extended tail of the left epididymis, this in combination with a left varicocele corresponds to the palpable lump. Bilateral small hydroceles Right varicocele Electronically Signed: Kyle Gibson MD at 7:47 EDT ,
== END | disposition home or self-care (01) ==
LOC: US 18:57
PROVIDERS: PCP Family Medicine; Visit Provider Family Medicine
DX: N50.89 Other specified disorders of the male genital organs (principal)
CPT/HCPCS: 76870; 93976

== ENCOUNTER → 2022-08-24 | Outpatient (CLI) | payer BC, SELFPAY ==
[2022-08-24 12:32] LABS: Vitamin D,25 Hydroxy 43.5 ng/mL
[2022-08-24 12:42] LABS: ALB/GLOB Ratio 1.1 RATIO (0.9-2.4); AST(SGOT) 37 U/L (15-37); Alanine Aminotransfer ALT/SGPT 76 U/L (16-61); Alkaline Phosphatase 119 U/L (45-117); Anion Gap 6 (5-15); BUN 17 mg/dL (7-18); BUN/Creat Ratio 15.3 RATIO (10-20); Calcium,Total 9.2 mg/dL (8.5-10.1); Chloride 101 mmol/L (98-107); Cholesterol 186 mg/dL (200); Creatinine, Serum 1.11 mg/dL (0.70-1.30); EST Glomerular Filtration Rate 77 mL/min (>60); Est Glom Filt Rate - Afr Amer 93 mL/min (>60); Globulin 3.6 g/dL (2.2-4.2); Glucose 103 mg/dL (74-106); High Density Lipoprotein 37 mg/dL; Potassium 4.1 mmol/L (3.5-5.1); Protein, Total 7.6 g/dL (6.4-8.2); Sodium Level 135 mmol/L (136-145); Thyroid Stim Hormone (TSH) 1.47 uIU/mL (0.358-3.74); Triglycerides 133 mg/dL; Very Low Density Lipoprotein 27 mg/dL (5-40)
== END | disposition home or self-care (01) ==
PROVIDERS: PCP Family Medicine; Referring Provider Family Medicine; Visit Provider Family Medicine
DX: Z00.00 Encounter for general adult medical examination without abnormal findings (principal)
CPT/HCPCS: 36415; 80053; 80061; 82306; 84403; 84443

== ENCOUNTER → 2022-10-25 | Outpatient (CLI) | payer BC, SELFPAY ==
[2022-10-25 10:57] LABS: Bilirubin, Direct 0.22 mg/dL (0.00-0.30)
[2022-10-26 16:05] LABS: ALB/GLOB Ratio 1.3 RATIO (0.9-2.4); AST(SGOT) 30 U/L (15-37); Alanine Aminotransfer ALT/SGPT 66 U/L (16-61); Albumin, Serum 4.1 g/dL (3.2-5.0); Alkaline Phosphatase 114 U/L (45-117); Anion Gap 6 (5-15); BUN 15 mg/dL (7-18); BUN/Creat Ratio 12.9 RATIO (10-20); Calcium,Total 8.7 mg/dL (8.5-10.1); Chloride 105 mmol/L (98-107); Creatinine, Serum 1.16 mg/dL (0.70-1.30); EST Glomerular Filtration Rate 73 mL/min (>60); Est Glom Filt Rate - Afr Amer 89 mL/min (>60); Globulin 3.1 g/dL (2.2-4.2); Glucose 102 mg/dL (74-106); Potassium 4.2 mmol/L (3.5-5.1); Protein, Total 7.2 g/dL (6.4-8.2); Sodium Level 137 mmol/L (136-145)
== END | disposition home or self-care (01) ==
PROVIDERS: PCP Family Medicine; Referring Provider Family Medicine; Visit Provider Family Medicine
DX: R74.8 Abnormal levels of other serum enzymes (principal)
CPT/HCPCS: 36415; 80053; 82248

== ENCOUNTER → 2023-09-10 | Outpatient (CLI) | payer OTHER, SELFPAY ==
[2023-09-10 11:12] LABS: ALB/GLOB Ratio 1.3 RATIO (0.9-2.4); AST(SGOT) 32 U/L (15-37); Alanine Aminotransfer ALT/SGPT 65 U/L (16-61); Alkaline Phosphatase 110 U/L (45-117); Anion Gap 9 (5-15); BUN 17 mg/dL (7-18); BUN/Creat Ratio 15.3 RATIO (10-20); Calcium,Total 8.8 mg/dL (8.5-10.1); Chloride 101 mmol/L (98-107); Cholesterol 175 mg/dL (200); Creatinine, Serum 1.11 mg/dL (0.70-1.30); EST Glomerular Filtration Rate 77 mL/min (>60); Est Glom Filt Rate - Afr Amer 93 mL/min (>60); Globulin 3.1 g/dL (2.2-4.2); Glucose 113 mg/dL (74-106); High Density Lipoprotein 38 mg/dL; Potassium 3.8 mmol/L (3.5-5.1); Protein, Total 7.1 g/dL (6.4-8.2); Sodium Level 137 mmol/L (136-145); Thyroid Stim Hormone (TSH) 2.03 uIU/mL (0.358-3.74); Triglycerides 150 mg/dL; Very Low Density Lipoprotein 30 mg/dL (5-40)
== END | disposition home or self-care (01) ==
PROVIDERS: PCP Family Medicine; Referring Provider Family Medicine; Visit Provider Family Medicine
DX: Z00.00 Encounter for general adult medical examination without abnormal findings (principal)
CPT/HCPCS: 36415; 80053; 80061; 84403; 84443

== ENCOUNTER → 2024-07-16 | Outpatient (CLI) | payer OTHER, SELFPAY ==
--- NOTE | 2024-07-16 06:23 | ECHOCS_ITS ---
Reason For Study Reason For Study: SYNCOPE/NEAR SYNCOPE Procedure This was a 2D Doppler, Color Flow transthoracic echocardiogram. Contrast injection was performed. Due to suboptimal apical imaging windows. Exam performed in department. Left Ventricle Normal LV size. Left ventricular systolic function is normal. The left ventricular ejection fraction is 55 %. No regional wall motion abnormalities noted. Right Ventricle Normal RV size. Normal systolic function. Atria Normal left atrium. Normal right atrium. Mitral Valve Normal mitral valve. Tricuspid Valve Normal tricuspid valve. Aortic Valve The aortic valve is not well visualized. Pulmonic Valve Normal pulmonic valve. Great Vessels Normal aortic root. The pulmonary artery is normal size. Inferior vena cava collapse with respiration. Pericardium/Pleural No pericardial effusion. Medication Diluted definity 2.0ml given slow IV push to enhance endocardial definition. MMode/2D Measurements & Calculations LVIDd: 5.4 cm IVSd: 1.0 cm Ao root diam: 3.0 cm LVIDs: 3.8 cm LVPWd: 1.0 cm RVDd: 4.1 cm FS: 29.7 % LAV(MOD-bp): 70.5 ml LVAd ap4: 42.9 cm2 LVAd ap2: 25.2 cm2 LAV(MOD-bp) Indexed: 33.0 ml/m2 LVLd ap4: 9.3 cm LVLd ap2: 7.8 cm LAV(MOD-sp2): 64.3 ml EDV(MOD-sp4): 162.4 ml EDV(MOD-sp2): 66.5 ml LAV(MOD-sp4): 64.1 ml EDV(sp4-el): 167.1 ml EDV(sp2-el): 69.3 ml LVAs ap4: 28.1 cm2 LVAs ap2: 16.0 cm2 LVLs ap4: 8.5 cm LVLs ap2: 7.3 cm ESV(MOD-sp4): 78.9 ml ESV(MOD-sp2): 29.9 ml ESV(sp4-el): 79.4 ml ESV(sp2-el): 30.0 ml EF(MOD-sp4): 51.4 % EF(MOD-sp2): 55.1 % EF(sp4-el): 52.5 % SV(MOD-sp4): 83.4 ml SV(MOD-sp2): 36.6 ml SV(sp4-el): 87.8 ml SI(MOD-sp4): 39.0 ml/m2 SI(MOD-sp2): 17.1 ml/m2 LA A4 area: 21.5 cm2 LA dimension(2D): 4.1 cm RA A4 area: 11.1 cm2 TAPSE: 2.5 cm Time Measurements MV dec time: 0.19 sec Doppler Measurements & Calculations MV E max sushant: 80.9 cm/sec Lat Peak E' Sushant: 15.8 cm/sec Med Peak E' Sushant: 14.1 cm/sec MV A max sushant: 60.5 cm/sec E/E' lat: 5.1 E/E' med: 5.7 MV E/A: 1.3 MV V2 max: 96.2 cm/sec MV P1/2t max sushant: 91.0 cm/sec Ao V2 max: 139.4 cm/sec MV max P.7 mmHg MV P1/2t: 70.7 msec Ao max P.8 mmHg MV V2 mean: 46.3 cm/sec MV dec slope: 376.9 cm/sec2 Ao V2 mean: 98.8 cm/sec MV mean P.0 mmHg MVA(P1/2t): 3.1 cm2 Ao mean P.3 mmHg MV V2 VTI: 30.7 cm Ao V2 VTI: 30.5 cm AV (velocity ratio): 0.79 LV V1 max: 109.6 cm/sec PA V2 max: 123.3 cm/sec LV V1 max P.8 mmHg PA V2 mean: 81.2 cm/sec LV V1 mean P.6 mmHg LV V1 mean: 76.1 cm/sec LV V1 VTI: 24.0 cm ECHO/Echo Complete W/ Contrast Interpretation Summary Normal LV size. Left ventricular systolic function is normal. The left ventricular ejection fraction is 55 %. Contrast injection was performed. Ordering Physician: Vicente Moore Referring Physician: Too Townsend Performed By: Rohini Reyez, DEVONTE, RVT
--- NOTE | 2024-07-16 10:40 | STRESSREP_ITS ---
Stress Test Report Exercise myocardial perfusion stress test. 43-year-old male with a history of chest pain Stress protocol: Resting EKG demonstrates sinus bradycardia with a rate of 59 bpm resting blood pressure is 118/88 mmHg. The patient exercised according to the regular Henrik protocol for a total duration of 10 minutes and 17 seconds attaining a maximum heart rate of 150 bpm which was 85% of maximum predicted heart rate; the maximum workload was 13.4 metabolic equivalents. At rest there were no ST or T wave changes noted to suggest ischemia and at peak exercise upsloping ST changes only were noted which did not meet the criteria for ischemia. No clinical angina was noted the test was terminated due to the target heart rate being achieved/fatig ue. The peak blood pressure was 160/70 mmHg. Rate-pressure product was 24,000. Myocardial perfusion protocol. 14.4 mCi of technetium 99m sestamibi was injected at rest. The patient exercised according to regular Henrik protocol for total duration of 10 minutes and 17 seconds and at peak exercise 44.5 mCi of technetium 99m sestamibi was injected stress images were obtained stress and rest images were reconstructed in comparing the short axis vertical long and horizontal long axis. Gated images were also obtained. Perfusion SPECT analysis: Review of the stress images demonstrate normal uptake of tracer noted in all areas of the myocardium. The resting images similarly demonstrate normal uptake of tracer noted in all areas of the myocardium. No areas of reversibility are noted to suggest ischemia no previous infarct was noted. Gated SPECT analysis: The gated ejection fraction is 58%. Conclusion: Normal exercise myocardial perfusion stress test at a high workload Preserved ejection fraction.
== END | disposition home or self-care (01) ==
PROVIDERS: PCP Family Medicine; Referring Provider Internal Medicine Cardiovascular Disease; Visit Provider Internal Medicine Cardiovascular Disease
DX: R55 Syncope and collapse (principal)
CPT/HCPCS: 78452; 93017; 93306; A9500; Q9957; A4216; C8929

== ENCOUNTER → 2024-07-18 | Outpatient (CLI) | payer OTHER, SELFPAY ==
--- NOTE | 2024-07-18 06:47 | CT_ITS ---
PROCEDURE: LIMITED CHEST CT CARDIAC ONLY REASON FOR EXAM: HTN Near syncopal episodes. TECHNIQUE: Supine chest CT without contrast. One or more dose reduction techniques were used (e.g., Automated exposure control, adjustment of the mA and/or kV according to patient size, use of iterative reconstruction technique). Dose report: CTDI L volume: 12.19. DLP: 219.42 COMPARISON: None FINDINGS: Hardware: None Lymph nodes: Unremarkable Heart and Vasculature: Normal heart size. No pericardial effusion. Coronary Artery Calcifications: Absent Lungs and Airways: Calcified granuloma in the right lower lobe. Pleura: No pleural effusion. Upper Abdomen: Unremarkable Bones: Unremarkable CT/Limited Chest CT Cardiac Only IMPRESSION: Coronary artery calcification (CAC) is is absent Reading Location: [place] [id number]
--- NOTE | 2024-07-18 07:38 | CA.SCORE ---
Calcium Scoring Date of Study:: 07/17/24 Indications Indications: syncope Coronary Calcium Scoring: High-resolution Computed Tomographic imaging of the chest was performed on [ ], with particular attention paid to the coronary arteries. Images from the examination were analyzed for the presence and extent of coronary artery calcification , using coronary calcium quantification software. The patient tolerated the procedure well and there were no complications. The results of the coronary calcification analysis are provided below. Findings Coronary Artery Left Main (LM): 0 Left Anterior Descending (LAD): 0 Left Circumflex (LCX): 0 Right Coronary Artery (RCA): 0 Total Agatston Score: 0 Percentile Rankin% Calcium Scoring Interpretation: Different methods to categorize the overall amount of coronary plaque. Overall amount CAC SIS Visual of coronary plaque P1 Mild -100 <2 1-2 vessels with mild amount of plaque P2 Moderate 101-300 3-4 1-2 vessels with moderate amount, 3 vessels with mild amount of plaque P3 Severe 301-999 5-7 3 vessels with moderate amount, 1 vessel with severe amount of plaque P4 Extensive >1000 >8 2-3 vessels with severe amount of plaque Conclusion: No atherosclerotic plaque noted
== END | disposition home or self-care (01) ==
LOC: CT 06:45
PROVIDERS: PCP Family Medicine; Referring Provider Internal Medicine Cardiovascular Disease; Visit Provider Internal Medicine Cardiovascular Disease
DX: R55 Syncope and collapse (principal); I10 Essential (primary) hypertension
CPT/HCPCS: 75571; 76380